=== PATIENT | female | born 1950 | race Caucasian/White ===

== ENCOUNTER 2019-09-08 16:09 | Inpatient (IN) | payer MEDICARE ==
[2019-09-08] MEDS ORDERED: FAMOTIDINE 20 MG/2 ML VIAL IV ONE (17:29)
[2019-09-08] MEDS ORDERED: FUROSEMIDE 20 MG/ 2ML VIAL ONE ×2 (17:29→17:57)
--- NOTE | 2019-09-08 17:47 | EDPHYS ---
Physician Documentation [facility] Name: Hedy Irene Age: 68 yrs Sex: Female : 1950 Arrival Date: 09/08/2019 Time: 16:12 Bed 6 Private MD: ED Physician Parminder West HPI: 09/08 17:14 This 68 yrs old Female presents to ER via Wheelchair with complaints of bri Breathing Difficulty. 17:14 The patient has shortness of breath at rest, with light activity. Onset: The bri symptoms/episode began/occurred 5 day(s) ago. Duration: The symptoms are continuous, and are steadily getting worse. The patient's shortness of breath is aggravated by exertion, light activity, supine position, walking. Severity of symptoms: At their worst the symptoms were moderate in the emergency department the symptoms are unchanged. The patient has not experienced similar symptoms in the past. Historical: - Allergies: 16:24 Codeine; aj1 - Home Meds: 16:24 fluoxetine 20 mg Oral cap 1 cap once daily [Active]; Lasix 40 mg Oral tab 1 tab 2 times aj1 per day [Active]; pravastatin 40 mg oral tab 1 tab once daily [Active]; oxybutynin chloride 5 mg Oral tr24 1 tab once daily [Active]; ropinirole 1 mg oral tab 1 tab twice daily [Active]; Vitamin D3 2,000 unit oral cap daily [Active]; CoQ-10 100 mg oral cap [Active]; Zyrtec 10 mg Oral chew 1 tab once daily [Active]; Prilosec 20 mg Oral cpDR 1 cap once daily [Active]; Lantus 100 unit/mL Sub-Q soln [Active]; Humalog 100 unit/mL Sub-Q crtg [Active]; Entresto 49-51 mg oral tab 1 tab 2 times per day [Active]; - PMHx: 16:24 CHF; Hyperlipidemia; Diabetes - NIDDM; aj1 - PSHx: 16:24 triple bypass; aj1 - Immunization history:: Adult Immunizations up to date. - Social history:: Smoking status: Patient/guardian denies using tobacco. - Ebola Screening: : Patient denies travel to an Ebola-affected area in the 21 days before illness onset. - Family history:: not pertinent. ROS: 17:14 Constitutional: Negative for fever, chills, and weight loss, Eyes: Negative for injury, bri pain, redness, and discharge, ENT: Negative for injury, pain, and discharge, Neck: Negative for injury, pain, and swelling, Cardiovascular: Negative for chest pain, palpitations, and edema, Abdomen/GI: Negative for abdominal pain, nausea, vomiting, diarrhea, and constipation, Back: Negative for injury and pain, : Negative for injury, bleeding, discharge, and swelling, Skin: Negative for injury, rash, and discoloration, Neuro: Negative for headache, weakness, numbness, tingling, and seizure, Psych: Negative for depression, anxiety, suicide ideation, homicidal ideation, and hallucinations, Allergy/Immunology: Negative for hives, rash, and allergies, Endocrine: Negative for neck swelling, polydipsia, polyuria, polyphagia, and marked weight changes, Hematologic/Lymphatic: Negative for swollen nodes, abnormal bleeding, and unusual bruising. 17:14 Respiratory: Positive for cough, dyspnea on exertion, pleurisy, shortness of breath, at rest. Exam: 17:14 Constitutional: This is a well developed, well nourished patient who is awake, alert, bri and in no acute distress. Head/Face: Normocephalic, atraumatic. Eyes: Pupils equal round and reactive to light, extra-ocular motions intact. Lids and lashes normal. Conjunctiva and sclera are non-icteric and not injected. Cornea within normal limits. Periorbital areas with no swelling, redness, or edema. ENT: Nares patent. No nasal discharge, no septal abnormalities noted. Tympanic membranes are normal and external auditory canals are clear. Oropharynx with no redness, swelling, or masses, exudates, or evidence of obstruction, uvula midline. Mucous membranes moist. Neck: Trachea midline, no thyromegaly or masses palpated, and no cervical lymphadenopathy. Supple, full range of motion without nuchal rigidity, or vertebral point tenderness. No Meningismus. Chest/axilla: Normal chest wall appearance and motion. Nontender with no deformity. No lesions are appreciated. Cardiovascular: Regular rate and rhythm with a normal S1 and S2. No gallops, murmurs, or rubs. Normal PMI, no JVD. No pulse deficits. Abdomen/GI: Soft, non-tender, with normal bowel sounds. No distension or tympany. No guarding or rebound. No evidence of tenderness throughout. Back: No spinal tenderness. No costovertebral tenderness. Full range of motion. Female : Normal external genitalia. Skin: Warm, dry with normal turgor. Normal color with no rashes, no lesions, and no evidence of cellulitis. Neuro: Awake and alert, GCS 15, oriented to person, place, time, and situation. Cranial nerves II-XII grossly intact. Motor strength 5/5 in all extremities. Sensory grossly intact. Cerebellar exam normal. Normal gait. Psych: Awake, alert, with orientation to person, place and time. Behavior, mood, and affect are within normal limits. 17:14 Respiratory: mild respiratory distress is noted, Respirations: labored breathing, Breath sounds: decreased breath sounds, that are mild. Vital Signs: 16:24 BP 135 / 57; Pulse 69; Resp 18; Temp 97.8; Pulse Ox 100% on R/A; Weight 73.48 kg (R); aj1 Height 5 ft. 4 in. (162.56 cm) (R); Pain 0/10; 17:42 BP 138 / 53; Pulse 84; Resp 18; Pulse Ox 97% 2 lpm ; sv 18:00 BP 143 / 59; Pulse 68; Resp 18; Pulse Ox 100% on 2 lpm NC; sv 19:00 BP 126 / 46; Pulse 88; Resp 18; Temp 97.8; Pulse Ox 100% on R/A; ea 20:59 BP 117 / 87; Pulse 89; Resp 18; Pulse Ox 100% on R/A; ea 22:26 BP 159 / 75; Pulse 73; Resp 18; Pulse Ox 99% on R/A; ea 16:24 Body Mass Index 27.81 (73.48 kg, 162.56 cm) aj1 MDM: 16:28 Patient medically screened. [facility] 17:14 Data reviewed: vital signs, nurses notes, lab test result(s), EKG, radiologic studies, [facility] plain films. 09/08 17:14 Order name: Basic Metabolic Panel; Complete Time: 18:59 [facility] 09/08 17:14 Order name: CBC with Diff [facility] 09/08 17:14 Order name: LFT's; Complete Time: 18:59 [facility] 09/08 17:14 Order name: Magnesium; Complete Time: 18:59 [facility] 09/08 17:14 Order name: NT PRO-BNP; Complete Time: 18:59 [facility] 09/08 17:14 Order name: PT-INR; Complete Time: 18:59 [facility] 09/08 17:14 Order name: Troponin (emerg Dept Use Only); Complete Time: 18:59 [facility] 09/08 17:14 Order name: Lipase; Complete Time: 18:59 [facility] 09/08 17:14 Order name: Urine Culture [facility] 09/08 17:14 Order name: Type And Screen [facility] 09/08 17:43 Order name: Urine Dipstick--Ancillary (enter results); Complete Time: 18:25 bd 09/08 18:19 Order name: Glucose; Complete Time: 18:59 sg 09/08 18:23 Order name: Glucose, Ancillary Testing; Complete Time: 18:25 EDTN 09/08 18:26 Order name: Glucose, Ancillary Testing EDTN 09/08 17:14 Order name: XRAY Chest (1 view); Complete Time: 18:27 [facility] 09/08 18:26 Order name: Phosphorus; Complete Time: 18:59 [facility] 09/08 19:00 Order name: Glucose, Ancillary Testing EDTN 09/08 19:42 Order name: Echo with Doppler EDTN 09/08 19:42 Order name: Troponin I EDTN 09/08 20:46 Order name: Manual Differential EDMS 09/09 00:38 Order name: ABO/RH no charge EDMS 09/09 05:00 Order name: Glucose, Ancillary Testing EDMS 09/09 05:25 Order name: Comprehensive Metabolic Panel EDMS 09/09 05:25 Order name: Phosphorus EDMS 09/09 05:25 Order name: NT PRO-BNP EDMS 09/09 05:25 Order name: Magnesium EDMS 09/09 05:53 Order name: Glucose, Ancillary Testing EDMS 09/09 06:15 Order name: CBC with Automated Diff EDMS 09/09 06:51 Order name: Manual Differential EDMS 09/09 07:08 Order name: Glucose, Ancillary Testing EDTN 09/08 17:14 Order name: EKG; Complete Time: 17:14 [facility] 09/08 17:14 Order name: Cardiac monitoring; Complete Time: 17:52 [facility] 09/08 17:14 Order name: EKG - Nurse/Tech; Complete Time: 18:15 [facility] 09/08 17:14 Order name: IV Saline Lock; Complete Time: 17:52 [facility] 09/08 17:14 Order name: Labs collected and sent; Complete Time: 17:52 [facility] 09/08 17:14 Order name: O2 Per Protocol; Complete Time: 17:52 [facility] 09/08 17:14 Order name: O2 Sat Monitoring; Complete Time: 17:52 [facility] 09/08 17:14 Order name: Urine Dipstick-Ancillary (obtain specimen); Complete Time: 18:14 [facility] 09/08 17:14 Order name: Oxygen; Complete Time: 17:52 [facility] 09/08 18:26 Order name: Diet Regular; Complete Time: 18:27 [facility] 09/08 18:28 Order name: IV Saline Lock - Large Bore; Complete Time: 18:32 [facility] Administered Medications: 17:40 Drug: Lasix 20 mg Route: IVP; Site: right forearm; sv 18:51 Follow up: Response: No adverse reaction sv 17:42 Drug: Pepcid 20 mg Route: IVP; Site: right forearm; sv 18:50 Follow up: Response: No adverse reaction sv 18:04 Drug: Lasix 20 mg Route: IVP; Site: right forearm; sv 18:50 Follow up: Response: No adverse reaction sv 18:14 Drug: D50W 25 ml Route: IVP; Site: right forearm; sv 18:50 Follow up: Response: No adverse reaction; Blood sugar is elevated sv 18:50 Drug: Potassium Effervescent Tablet 50 mEq Route: PO; sv 19:00 Follow up: Response: No adverse reaction ea 18:50 Drug: Potassium Chloride 20 mEq Route: IV; Rate: per protocol; Site: right forearm; sv 21:00 Follow up: Response: No adverse reaction; IV Status: Completed infusion; IV Intake: 50mlea 18:50 Drug: Magnesium Sulfate 2 grams Route: IVPB; Infused Over: 2 hrs; Site: right forearm; sv 21:00 Follow up: Response: No adverse reaction; IV Status: Completed infusion ea 19:39 Drug: NS 0.9% with KCl 20 mEq/L 1000 ml Route: IV; Rate: 50 ml/hr; Site: right ea antecubital; 22:23 Follow up: Response: No adverse reaction; IV Status: Infusion continued upon admission ea Disposition: 09/08/19 17:46 Hospitalization ordered by Elias Chamorro for Inpatient Admission. Preliminary diagnosis are Dyspnea, Cardiomegaly, Unspecified combined systolic (congestive) and diastolic (congestive) heart failure, Pleural effusion in conditions classified elsewhere, Edema, unspecified, Type 2 diabetes mellitus, Hypokalemia, Hypomagnesemia, Hypoglycemia, unspecified, Unspecified kidney failure - insufficency. - Bed requested for Telemetry/MedSurg (Inpatient). - Status is Inpatient Admission. hb - Condition is Fair. - Problem is new. - Symptoms have improved. UTI on Admission? No Signatures: Dispatcher [employer] EDMS Pallavi Grullon RN RN ajYoanna Jj RN Tena Rojas RN Radha Mcrae RN Parminder Bradshaw MD MD cha Baxter, Heather, RN RN hb Antunez, Elena, RN RN ea Corrections: (The following items were deleted from the chart) 18:28 17:46 Hospitalization Ordered by Elias Chamorro DO for Inpatient Admission. Preliminary bri diagnosis is Dyspnea; Cardiomegaly; Unspecified combined systolic (congestive) and diastolic (congestive) heart failure; Pleural effusion in conditions classified elsewhere; Edema, unspecified; Type 2 diabetes mellitus. Bed requested for Telemetry/MedSurg (Inpatient). Status is Inpatient Admission. Condition is Fair. Problem is new. Symptoms have improved. UTI on Admission? No. bri 18:29 18:28 09/08/2019 17:46 Hospitalization Ordered by Elias Chamorro DO for Inpatient bri Admission. Preliminary diagnosis is Dyspnea; Cardiomegaly; Unspecified combined systolic (congestive) and diastolic (congestive) heart failure; Pleural effusion in conditions classified elsewhere; Edema, unspecified; Type 2 diabetes mellitus; Hypokalemia; Hypomagnesemia; Hypoglycemia, unspecified. Bed requested for Telemetry/MedSurg (Inpatient). Status is Inpatient Admission. Condition is Fair. Problem is new. Symptoms have improved. UTI on Admission? No. bri 22:40 18:29 09/08/2019 17:46 Hospitalization Ordered by Elias Chamorro DO for Inpatient mw Admission. Preliminary diagnosis is Dyspnea; Cardiomegaly; Unspecified combined systolic (congestive) and diastolic (congestive) heart failure; Pleural effusion in conditions classified elsewhere; Edema, unspecified; Type 2 diabetes mellitus; Hypokalemia; Hypomagnesemia; Hypoglycemia, unspecified; Unspecified kidney failure - insufficency. Bed requested for Telemetry/MedSurg (Inpatient). Status is Inpatient Admission. Condition is Fair. Problem is new. Symptoms have improved. UTI on Admission? No. bri 09/09 10:52 12 22:40 09/08/2019 17:46 Hospitalization Ordered by Elias Pedro Pablo for Inpatient dw Admission. Preliminary diagnosis is Dyspnea; Cardiomegaly; Unspecified combined systolic (congestive) and diastolic (congestive) heart failure; Pleural effusion in conditions classified elsewhere; Edema, unspecified; Type 2 diabetes mellitus; Hypokalemia; Hypomagnesemia; Hypoglycemia, unspecified; Unspecified kidney failure - insufficency. Bed requested for [facility] ER HOLD. Status is Inpatient Admission. Condition is Fair. Problem is new. Symptoms have improved. UTI on Admission? No. mw 09/09 12:07 10:52 09/08/2019 17:46 Hospitalization Ordered by Elias Chamorro DO for Inpatient hb Admission. Preliminary diagnosis is Dyspnea; Cardiomegaly; Unspecified combined systolic (congestive) and diastolic (congestive) heart failure; Pleural effusion in conditions classified elsewhere; Edema, unspecified; Type 2 diabetes mellitus; Hypokalemia; Hypomagnesemia; Hypoglycemia, unspecified; Unspecified kidney failure - insufficency. Bed requested for Telemetry/MedSurg (Inpatient). Status is Inpatient Admission. Condition is Fair. Problem is new. Symptoms have improved. UTI on Admission? No. dw
--- NOTE | 2019-09-08 17:47 | ER ---
Nurse's Notes [facility] Name: Hedy Irene Age: 68 yrs Sex: Female : 1950 Arrival Date: 09/08/2019 Time: 16:12 Bed 6 Private MD: Diagnosis: Dyspnea;Cardiomegaly;Unspecified combined systolic (congestive) and diastolic (congestive) heart failure;Pleural effusion in conditions classified elsewhere;Edema, unspecified;Type 2 diabetes mellitus;Hypokalemia;Hypomagnesemia;Hypoglycemia, unspecified;Unspecified kidney failure-insufficency Presentation: 09/08 16:18 Presenting complaint: Patient states: She saw her doctor yesterday and had X-Rays done, aj1 this morning they called and told her that she had fluid on her lungs and to come to the emergency room. Patient reports shortness of breath on exertion, cough. Denies fever. Transition of care: patient was not received from another setting of care. Onset of symptoms was 2018. Risk Assessment: Do you want to hurt yourself or someone else? Patient reports no desire to harm self or others. Initial Sepsis Screen: Does the patient meet any 2 criteria? No. Patient's initial sepsis screen is negative. Does the patient have a suspected source of infection? Yes: Productive cough/pneumonia. Care prior to arrival: None. 16:18 Method Of Arrival: Wheelchair aj1 16:18 Acuity: CJ 3 aj1 Triage Assessment: 16:24 General: Appears in no apparent distress. comfortable, Behavior is calm, cooperative, aj1 appropriate for age. Pain: Denies pain. Neuro: Level of Consciousness is awake, alert, obeys commands. Cardiovascular: Patient's skin is warm and dry. Respiratory: Reports shortness of breath on exertion Airway is patent Respiratory effort is even, unlabored, Respiratory pattern is regular, symmetrical, the patient has mild shortness of breath. Historical: - Allergies: 16:24 Codeine; aj1 - Home Meds: 16:24 fluoxetine 20 mg Oral cap 1 cap once daily [Active]; Lasix 40 mg Oral tab 1 tab 2 times aj1 per day [Active]; pravastatin 40 mg oral tab 1 tab once daily [Active]; oxybutynin chloride 5 mg Oral tr24 1 tab once daily [Active]; ropinirole 1 mg oral tab 1 tab twice daily [Active]; Vitamin D3 2,000 unit oral cap daily [Active]; CoQ-10 100 mg oral cap [Active]; Zyrtec 10 mg Oral chew 1 tab once daily [Active]; Prilosec 20 mg Oral cpDR 1 cap once daily [Active]; Lantus 100 unit/mL Sub-Q soln [Active]; Humalog 100 unit/mL Sub-Q crtg [Active]; Entresto 49-51 mg oral tab 1 tab 2 times per day [Active]; - PMHx: 16:24 CHF; Hyperlipidemia; Diabetes - NIDDM; aj1 - PSHx: 16:24 triple bypass; aj1 - Immunization history:: Adult Immunizations up to date. - Social history:: Smoking status: Patient/guardian denies using tobacco. - Ebola Screening: : Patient denies travel to an Ebola-affected area in the 21 days before illness onset. - Family history:: not pertinent. Screenin:35 Abuse screen: Denies threats or abuse. Denies injuries from another. Nutritional sv screening: No deficits noted. Tuberculosis screening: No symptoms or risk factors identified. Fall Risk None identified. Assessment: 17:35 General: Appears in no apparent distress. uncomfortable, well developed, Behavior is sv calm, cooperative, appropriate for age. Pain: Denies pain. Neuro: Level of Consciousness is awake, alert, obeys commands, Oriented to person, place, time, situation, Moves all extremities. Full function Gait is steady, Speech is normal. Cardiovascular: Patient's skin is warm and dry. Rhythm is sinus rhythm. Respiratory: Airway is patent Respiratory effort is even, unlabored, Respiratory pattern is regular, symmetrical, Breath sounds are diminished bilaterally. Derm: Skin is pink, warm \T\ dry. Musculoskeletal: Range of motion: intact in all extremities, Swelling present in right foot and left foot. 18:15 Reassessment: Dr Chamorro at the bedside. sv 18:26 Reassessment: Pt given sandwich, chips and fruit. sv 18:50 Reassessment: Patient appears in no apparent distress at this time. Patient and/or sv family updated on plan of care and expected duration. Pain level reassessed. Patient is alert, oriented x 3, equal unlabored respirations, skin warm/dry/pink. 19:00 General: Appears in no apparent distress. Behavior is calm, cooperative, appropriate ea for age. Pain: Denies pain. Neuro: Level of Consciousness is awake, alert, obeys commands, Oriented to person, place, time, situation. Cardiovascular: Patient's skin is warm and dry. Respiratory: Airway is patent Respiratory effort is even, unlabored, Respiratory pattern is regular, symmetrical. Derm: Skin is pink, warm \T\ dry. Musculoskeletal: Circulation, motion, and sensation intact. 20:58 Reassessment: Patient and/or family updated on plan of care and expected duration. Pain ea level reassessed. Patient is alert, oriented x 3, equal unlabored respirations, skin warm/dry/pink. Awaiting on room assignment. Vital Signs: 16:24 BP 135 / 57; Pulse 69; Resp 18; Temp 97.8; Pulse Ox 100% on R/A; Weight 73.48 kg (R); aj1 Height 5 ft. 4 in. (162.56 cm) (R); Pain 0/10; 17:42 BP 138 / 53; Pulse 84; Resp 18; Pulse Ox 97% 2 lpm ; sv 18:00 BP 143 / 59; Pulse 68; Resp 18; Pulse Ox 100% on 2 lpm NC; sv 19:00 BP 126 / 46; Pulse 88; Resp 18; Temp 97.8; Pulse Ox 100% on R/A; ea 20:59 BP 117 / 87; Pulse 89; Resp 18; Pulse Ox 100% on R/A; ea 22:26 BP 159 / 75; Pulse 73; Resp 18; Pulse Ox 99% on R/A; ea 16:24 Body Mass Index 27.81 (73.48 kg, 162.56 cm) aj1 ED Course: 16:12 Patient arrived in ED. rg4 16:20 Triage completed. aj1 16:24 Arm band placed on Patient placed in an exam room. aj1 16:28 Parminder West MD is Attending Physician. [facility] 17:25 Yoanna Pedro, SOREN is Primary Nurse. sv 17:33 XRAY Chest (1 view) In Process Unspecified. EDMS 17:35 Patient has correct armband on for positive identification. Placed in gown. Bed in low sv position. Call light in reach. youth nutritional monitor on. Pulse ox on. NIBP on. Door closed. Warm blanket given. Head of bed elevated. 17:40 T\T\S collected, blood band applied to patient. Inserted saline lock: 20 gauge in right sv forearm, using aseptic technique. Blood collected. Flushed right forearm with 5 ml normal saline. 17:45 Elias Chamorro DO is Hospitalizing Provider. bri 18:50 Glucose, Ancillary Testing Sent. sv 19:16 Report given to Misa DOTY and Barbara RN. sv 19:51 Primary Nurse role handed off by Yoanna Pedro RN sv 20:01 Barbara Vickers RN is Primary Nurse. ea 22:24 No provider procedures requiring assistance completed. Patient admitted, IV remains in ea place. 09/09 07:34 Primary Nurse role handed off by Barbara Vickers RN bd Administered Medications: 09/08 17:40 Drug: Lasix 20 mg Route: IVP; Site: right forearm; sv 18:51 Follow up: Response: No adverse reaction sv 17:42 Drug: Pepcid 20 mg Route: IVP; Site: right forearm; sv 18:50 Follow up: Response: No adverse reaction sv 18:04 Drug: Lasix 20 mg Route: IVP; Site: right forearm; sv 18:50 Follow up: Response: No adverse reaction sv 18:14 Drug: D50W 25 ml Route: IVP; Site: right forearm; sv 18:50 Follow up: Response: No adverse reaction; Blood sugar is elevated sv 18:50 Drug: Potassium Effervescent Tablet 50 mEq Route: PO; sv 19:00 Follow up: Response: No adverse reaction ea 18:50 Drug: Potassium Chloride 20 mEq Route: IV; Rate: per protocol; Site: right forearm; sv 21:00 Follow up: Response: No adverse reaction; IV Status: Completed infusion; IV Intake: 50mlea 18:50 Drug: Magnesium Sulfate 2 grams Route: IVPB; Infused Over: 2 hrs; Site: right forearm; sv 21:00 Follow up: Response: No adverse reaction; IV Status: Completed infusion ea 19:39 Drug: NS 0.9% with KCl 20 mEq/L 1000 ml Route: IV; Rate: 50 ml/hr; Site: right ea antecubital; 22:23 Follow up: Response: No adverse reaction; IV Status: Infusion continued upon admission ea Intake: 21:00 IV: 50ml; Total: 50ml. ea Outcome: 17:46 Decision to Hospitalize by Provider. bri 19:00 Instructed on the need for admit, Demonstrated understanding of instructions. ea 22:25 Admitted to ER Hold. Please see [facility] for further documentation. ea 22:25 Condition: stable 09/09 12:07 Patient left the ED. blanche Signatures: Dispatcher [employer] EDMS Harper Irvin Angela, RN RN ajYoanna Jj RN Parminder Potts MD MD cha Baxter, Heather, RN RN hb Garcia, Rubi 4 Barbara Vickers RN RN ea
[2019-09-08 18:02] LABS: Absolute Lymphocytes (CBC) 1.9 K/uL (0.7-4.9); Basophils % 1.1 % (0-1.3); Hematocrit 25.9 % (36.0-45.0); Lymphocytes % 27.1 % (15.3-44.8); MPV 8.1 fL (7.6-11.3); RBC Red Blood Cell Count 3.78 M/uL (3.86-4.86)
[2019-09-08 18:03] LABS: Protime INR 1.19
[2019-09-08 18:09] LABS: Urine Blood NEGATIVE (NEG); Urine Glucose NEGATIVE (NEG); Urine Protein NEGATIVE (NEG)
[2019-09-08] MEDS ORDERED: D50W 25 GM/50 ML SYRINGE/VIAL IV ONE (18:15)
[2019-09-08 18:22] LABS: Albumin 3.1 g/dL (3.4-5.0); Bilirubin Direct 0.2 mg/dL (0-0.2); Bilirubin Total 0.5 mg/dL (0.2-1.0); Magnesium 1.5 mg/dL (1.8-2.4); Protein, Total 6.9 g/dL (6.4-8.2); Troponin (Emerg Dept Use Only) 0.04 ng/mL (0.0-0.045)
--- NOTE | 2019-09-08 18:22 | RAD REPORT ---
EXAM DESCRIPTION: RAD - Chest Single View - 09/08/2019 5:35 pm CLINICAL HISTORY: Cough, dyspnea COMPARISON: September 07 TECHNIQUE: AP portable chest image was obtained 1732 hours . FINDINGS: No peripheral mass or consolidation. Left pleural effusion and left base atelectasis are p resent not substantially different from comparison. Right pleural effusion appears slightly less than September 07 imaging. The interval changes small. Heart size normal. Vasculature within normal limits . No pneumothorax. No acute bony abnormality seen. No acute aortic findings suspected. IMPRESSION: No focal mass or consolidation. No significant failure or volume overload. Left pleural effusion is small and similar to comparison. Minimal right pleural effusion is probably slightly improved from prior day imaging.
[2019-09-08] MEDS ORDERED: POTASSIUM 25 MEQ EFFERV TAB ONE ×2 (18:30→18:40)
[2019-09-08 18:32] LABS: Potassium 2.9 mmol/L (3.5-5.1)
[2019-09-08] MEDS ORDERED: Magnesium Sulfate 2gm IVPB 2 G/50 ML BAG IV ONE (18:40)
[2019-09-08] MEDS ORDERED: KCL 20 MEQ/100 mL IVPB 20 MEQ/100 ML BAG IV ONE (18:41)
[2019-09-08] MEDS ORDERED: NS KCL 20MEQ 1,000 ML IV ONE (19:30)
[2019-09-08] MEDS ORDERED: MAGNESIUM HYDROXIDE 8% 30 ML PO PRN (19:36)
[2019-09-08] MEDS ORDERED: ONDANSETRON 4 MG/2 ML VIAL IV PRN (19:36)
[2019-09-08] MEDS ORDERED: ACETAMINOPHEN 500 MG TAB PO PRN (19:36)
[2019-09-08 20:46] LABS: Anisocytosis 1+; Blood Morphology Comment NOTED (NOT SEEN); Hypochromasia 1+; Ovalocytes 1+; Platelet Estimate ADEQ; Poikilocytosis 1+; Polychromasia 1+
[2019-09-08] MEDS: METOPROLOL TAR 50 MG TAB PO SCH (21:00)
[2019-09-08] MEDS: POTASSIUM 25 MEQ EFFERV TAB PO SCH (21:00)
[2019-09-08 23:40] VITALS: BMI 27.8
[2019-09-09] MEDS: FUROSEMIDE 40 MG/4 ML VIAL IV SCH ×3 (01:00→18:16)
[2019-09-09] MEDS ORDERED: FUROSEMIDE 20 MG/ 2ML VIAL ONE ×2 (01:06→09:50)
[2019-09-09] MEDS ORDERED: METOPROLOL TAR 50 MG TAB ONE ×2 (01:06→09:50)
[2019-09-09 05:24] LABS: Albumin 2.9 g/dL (3.4-5.0); Bilirubin Total 0.5 mg/dL (0.2-1.0); Magnesium 1.9 mg/dL (1.8-2.4); Potassium 3.7 mmol/L (3.5-5.1); Protein, Total 6.3 g/dL (6.4-8.2)
[2019-09-09 06:11] LABS: Hematocrit 23.8 % (36.0-45.0); MPV 8.1 fL (7.6-11.3); RBC Red Blood Cell Count 3.51 M/uL (3.86-4.86)
[2019-09-09 06:51] LABS: Anisocytosis 1+; Blood Morphology Comment NOTED (NOT SEEN); Hypochromasia 2+; Platelet Estimate ADEQ; Poikilocytosis 1+; Target Cells 1+
[2019-09-09] MEDS: METOPROLOL TAR 50 MG TAB PO SCH ×2 (09:00→21:38)
[2019-09-09] MEDS: POTASSIUM 25 MEQ EFFERV TAB PO SCH ×3 (09:00→21:39)
[2019-09-09] MEDS: ASPIRIN EC 81 MG TAB PO SCH (09:00)
[2019-09-09] MEDS: ENOXAPARIN 40 MG/0.4 ML SQ SCH (09:00)
[2019-09-09] MEDS: CLOPIDOGREL 75 MG TABLET PO SCH (09:00)
[2019-09-09] MEDS ORDERED: ASPIRIN 81 MG CHEWABLE TABLET ONE (09:50)
[2019-09-09] MEDS ORDERED: CLOPIDOGREL 75 MG TABLET ONE (09:50)
[2019-09-09] MEDS ORDERED: POTASSIUM 25 MEQ EFFERV TAB ONE (09:50)
[2019-09-09] MEDS ORDERED: ENOXAPARIN 80 MG/0.8 ML SQ ONE (09:51)
[2019-09-09] MEDS ORDERED: NA CHLORIDE 0.9% 250 ML ONE ×2 (09:51→14:28)
[2019-09-09] MEDS ORDERED: FUROSEMIDE 20 MG/ 2ML VIAL IV PRN (10:55)
--- NOTE | 2019-09-09 18:36 | EKG ---
Test Date: 2019-09-08 Test Time: 18:21:03 Fruit Receiver: CHANDLER MEASUREMENT RESULTS: Intervals: Rate: 67 OK: 184 QRSD: 82 QT: 366 QTc: 386 [place]: P: 62 OK: 184 QRS: 81 T: 232 INTERPRETIVE STATEMENTS: Normal sinus rhythm T wave abnormality, consider inferior ischemia Abnormal ECG No previous ECG available for comparison Electronically Signed On 09-09-19 18:36:10 TECHNICAL SUPPORT 1 SOFTWARE ENGINEER by Real Herman
[2019-09-10] MEDS: FUROSEMIDE 40 MG/4 ML VIAL IV SCH ×2 (00:05→10:03)
[2019-09-10] MEDS: POTASSIUM CL SA 10 MEQ TAB PO SCH ×2 (00:09→09:53)
[2019-09-10 06:51] LABS: Potassium 4.1 mmol/L (3.5-5.1)
[2019-09-10] MEDS: ENOXAPARIN 40 MG/0.4 ML SQ SCH (09:00)
[2019-09-10] MEDS: ASPIRIN EC 81 MG TAB PO SCH (09:00)
[2019-09-10] MEDS: METOPROLOL TAR 50 MG TAB PO SCH (09:53)
[2019-09-10] MEDS: CLOPIDOGREL 75 MG TABLET PO SCH (09:53)
[2019-09-10 13:08] VITALS: O2SAT 98
[2019-09-10 13:25] VITALS: BP 143/62; TEMP 98
--- NOTE | 2019-09-10 17:13 | CON ---
Date of Consultation: 09/10/2019 Reason For Consult: Acute on chronic renal insufficiency. History Of Present Illness: Ms. Irene is a 68-year-old female with past medical history significant for history of acute on chronic renal insufficiency, congestive heart failure, and coronary artery d dylan, presented to [facility] with complaining of worsening shortness of br eath, abdominal distention, weight gain of about 25 pounds, and was told by her primary care provider to go to the hospital for further evaluation. Because of ongoing congestive heart failure, which wa s failing to improve on p.o. Lasix. The patient has been admitted to the hospital and has received a few doses of IV Lasix with some improvement in her swelling and her shortness of breath. She is als o complaining of dry cough that has started after she started gaining all this weight. The patient r eports noncompliance with salt and reports that she loves salt in all her food and also reports eatin g a lot of processed meat. Past Medical History: Significant for history of chronic renal insufficiency, has been seen by Dr. Flor thomson in the past and follows up with him closely. History of type 2 diabetes mellitus, hypokalemia , hypomagnesemia, history of congestive heart failure, and coronary artery disease. Social History: Lives at home. No history of smoking or alcohol use reported. Family History: Noncontributory. Review of Systems: As per history of present illness. She denies any chest pain. She denies any abdominal pain. Does complain of decreased urination, which is improving at this time. No history of constipation. No hi story of abdominal pain. No headaches. No blurry vision. All other review of systems are negative. Physical Examination: Vital Signs: At this time are showing temperature of 97.3, pulse rate of 57, respiratory rate of 20, and blood pressure 120/55. General: She appears in no acute distress. No JVD was noted. Lungs: Clear to auscultation. Abdomen: Slightly distended, nontender. No rebound or guarding was noted. Extremities: Show 2+ bilateral pitting edema. Laboratory Data: Showing creatinine of 1.5, BUN of 40, and other electrolytes are stable. CBC showe d hemoglobin of 10.7, hematocrit of 34; was previously 7.4, upon repeated was improved to 10.7. Current Medications: Have been reviewed in detail. Impression: 1.Acute on chronic renal insufficiency, currently secondary to cardiorenal syndrome. The patient is diuresing well with IV Lasix. She can be discharged on p.o. Lasix 40 mg b.i.d. 2.Anemia. I am sure if the hemoglobin of 7.4 was a true value, it did improve to 10.7 at this time. She probably needs to be further worked up for iron deficiency as outpatient. We will further disc uss with Dr. Rich. 3.Hypertension, stable. 4.Coronary artery disease, stable. Being followed by Cardiology as outpatient as well. Plan: Patient is overall doing okay. However, we are concerned about the anemia and will need furth er workup for iron deficiency and may need some IV iron in the future. She is okay to be discharged at this point with 40 mg of Lasix b.i.d. and a close followup with Dr. Rich as outpatient. TRISTON/KORINL Voice ID: [id number] Report ID: [id number]
--- NOTE | 2019-10-12 07:31 | P.HP ---
Certification for Inpatient Patient admitted to: Inpatient With expected LOS: >2 Midnights Patient will require the following post-hospital care: None Practitioner: I am a practitioner with admitting privileges, knowledge of patient current condition, hospital course, and medical plan of care. Services: Services provided to patient in accordance with Admission requirements found in Title 42 Section 412.3 of the Code of Federal Regulations Patient History Date of Service: 09/08/19 Reason for admission: Shortness of breath History of Present Illness: Ms. Irene is a 68-year-old female with past medical history significant for history of chronic renal insufficiency, congestive heart failure, and coronary artery disease, who presented to [facility] with complaints of difficulty breathing and weight gain along with abdominal distension that is been going on for the last few weeks. She has a history of congestive heart failure and she feels like the swelling is related to build up of fluid. She feels like her Lasix is not working. In the emergency room, she was worked up & her chest x-ray reveals some pulmonary edema. She was given IV diuresing. She does have acute on chronic renal insufficiency. We will consult Nephrology. Patient will be admitted to the hospital for further workup. Allergies codeine Allergy (Verified 02/09/14 12:55) UNK Home Medications: Cetirizine HCl [Zyrtec*] 10 mg PO DAILY 02/09/14 Cholecalciferol (Vitamin D3) [Vitamin D 2,000 Unit Tab] 2,000 units PO BID 02/09 Fluoxetine HCl [Prozac*] 20 mg PO DAILY 02/09/14 Insulin Lispro [Humalog*] 0 units SQ UD PRN 02/09/14 Omeprazole Magnesium [Prilosec Otc] 20 mg PO DAILY 02/09/14 Oxybutynin Chloride [Ditropan*] 5 mg PO DAILY 02/09/14 Pravastatin [Pravachol*] 40 mg PO BEDTIME 02/09/14 Ubidecarenone [Coenzyme Q10*] 100 mg PO DAILY 02/09/14 Furosemide [Lasix*] 40 mg PO DAILY 09/08/19 Insulin Glargine Human [Lantus*] 22 units SQ DAILY 09/08/19 Ropinirole HCl [Requip*] 1 mg PO BID 09/08/19 Sacubitril/Valsartan [Entresto 49 mg-51 mg Tablet] 1 tab PO DAILY 09/08/19 Benzonatate [Tessalon Perle] 100 mg PO TID #15 cap 09/10/19 - Past Medical/Surgical History Has patient received pneumonia vaccine in the past: Yes Diabetic: Yes -: Type 1 DM -: CHF -: Headaches -: HLD -: Hysterectomy -: -: L shoulder surgery -: CABG-triple bypass x3, -: carpal tunnel bilaterally -: trigger thumb bilaterally - Family History Mother Medical History: Cancer Notes: Breast cancer - Social History Smoking Status: Never smoker Alcohol use: No CD- Drugs: No Caffeine use: Yes Place of Residence: Home Review of Systems 10-point ROS is otherwise unremarkable Physical Examination - Vital Signs Temperature: 98 F Blood Pressure: 143/62 Pulse: 56 Respirations: 20 Pulse Ox (%): 98 - Physical Exam General: Alert, In no apparent distress, Oriented x3 HEENT: Atraumatic, PERRLA, Mucous membr. moist/pink, EOMI, Sclerae nonicteric Neck: Supple, 2+ carotid pulse no bruit, No LAD, Without JVD or thyroid abnormality Respiratory: Clear to auscultation bilaterally, Normal air movement Cardiovascular: Regular rate/rhythm, Normal S1 S2, No murmurs Gastrointestinal: Normal bowel sounds, Soft and benign, Non-distended, No tenderness, No rebound, No guarding Musculoskeletal: No clubbing, No swelling, No tenderness Integumentary: No rashes Neurological: Normal gait, Normal speech, Normal strength at 5/5 x4 extr, Normal tone, Sensation intact, Cranial nerves 3-12 intact, Normal affect Lymphatics: No axilla or inguinal lymphadenopathy Assessment & Plan - Problems (Diagnosis) (1) Shortness of breath Status: Acute (2) Acute on chronic renal insufficiency Status: Acute (3) Abdominal pain Status: Acute (4) Nausea and vomiting Status: Acute - Plan 1. Continue with IV antibiotics 2. Awaiting sputum and blood culture 3. Repeat chest x-ray 4. Will proceed with CT scan of the chest if symptoms do not improve 5. Nephrology consultation to assist with monitoring renal function 6. Continue with nebs as needed 7. O2 per protocol 8. Continue with gentle hydration 9. Repeat labs including CBC and renal function in a.m. 10. GI and DVT prophylaxis Discharge Plan: Home Plan to discharge in: 48 Hours - Advance Directives Does patient have a Living Will: No Does patient have a Durable POA for Healthcare: No - Code Status/Comfort Care Code Status Assessed: Yes Code Status: Full Code Critical Care: No Time Spent Managing PTS Care (In Minutes): 45
--- NOTE | 2019-10-12 07:50 | P.PN ---
Subjective Date of Service: 09/09/19 Subjective: Improving Pt clinically continues to improve with no new complaints. Spoke with Nephrology and possible discharge tomorrow morning. Review of Systems 10-point ROS is otherwise unremarkable Physical Examination - Vital Signs Temperature: 98 F Blood Pressure: 143/62 Pulse: 56 Respirations: 20 Pulse Ox (%): 98 - Physical Exam General: Alert, In no apparent distress, Oriented x3 Respiratory: Clear to auscultation bilaterally, Normal air movement Cardiovascular: Regular rate/rhythm, Normal S1 S2 Gastrointestinal: Normal bowel sounds, Soft and benign, Non-distended, No tenderness Musculoskeletal: No tenderness - Studies Medications List Reviewed: Yes Assessment & Plan - Problems (Diagnosis) (1) Shortness of breath Status: Acute (2) Acute on chronic renal insufficiency Status: Acute (3) Abdominal pain Status: Acute (4) Nausea and vomiting Status: Acute - Plan Continue with current plan of care as mentioned below. 1. Continue with IV hydration 2. Appreciate Nephrology consultation 3. Continue with nebs as needed 4. O2 per protocol 5. Continue with gentle hydration 6. Repeat labs including CBC and renal function in a.m. 7. GI and DVT prophylaxis Discharge Plan: Home Plan to discharge in: Greater than 2 days - Advance Directives Does patient have a Living Will: No Does patient have a Durable POA for Healthcare: No - Code Status/Comfort Care Code Status: Full Code Critical Care: No Time Spent Managing PTS Care (In Minutes): 40
--- NOTE | 2019-10-12 07:57 | P.DS ---
Discharge Date: 09/10/19 Disposition: ROUTINE DISCHARGE Discharge Condition: GOOD Reason for Admission: Shortness of breath Consultations: Nephrology - Problems (1) Shortness of breath Status: Acute (2) Acute on chronic renal insufficiency Status: Acute (3) Abdominal pain Status: Acute (4) Nausea and vomiting Status: Acute Brief History of Present Illness: Ms. Irene is a 68-year-old female with past medical history significant for history of chronic renal insufficiency, congestive heart failure, and coronary artery disease, who presented to [facility] with complaints of difficulty breathing and weight gain along with abdominal distension that is been going on for the last few weeks. She has a history of congestive heart failure and she feels like the swelling is related to build up of fluid. She feels like her Lasix is not working. In the emergency room, she was worked up & her chest x-ray reveals some pulmonary edema. She was given IV diuresing. She does have acute on chronic renal insufficiency. We will consult Nephrology. Patient will be admitted to the hospital for further workup. Hospital Course: Patient has done well during hospital stay. Patient did require 2 units of packed red blood cells. Patient had episode of hypoglycemia which was corrected as well. Hold oral hypoglycemic agents. Adjust additional medications prior to discharge. Clinically patient is doing much better. At this time patient is stable for discharge with outpatient follow-up. Patient will need close follow-up with Cardiology and Nephrology. Vital Signs/Physical Exam: Temp Pulse Resp BP Pulse Ox 98 F 56 20 143/62 H 98 10/12/19 07:50 10/12/19 07:50 10/12/19 07:50 10/12/19 07:50 10/12/19 07:50 General: Alert, In no apparent distress, Oriented x3 Laboratory Data at Discharge: WBC 6.9 K/uL (4.3-10.9) 09/09/19 05:36 Hgb 10.7 g/dL (12.0-15.0) L D 09/09/19 19:40 Hct 34.0 % (36.0-45.0) L D 09/09/19 19:40 Plt Count 328 K/uL (152-406) 09/09/19 05:36 PT 13.9 SECONDS (9.5-12.5) H 09/08/19 17:40 INR 1.19 12/31/19 17:40 Sodium 142 mmol/L (136-145) 09/10/19 06:28 Potassium 4.1 mmol/L (3.5-5.1) 09/10/19 06:28 BUN 40 mg/dL (7-18) H 09/10/19 06:28 Creatinine 1.53 mg/dL (0.55-1.3) H 09/10/19 06:28 Glucose 93 mg/dL (74-106) 09/10/19 06:28 Phosphorus 4.0 mg/dL (2.5-4.9) 09/09/19 04:24 Magnesium 1.9 mg/dL (1.8-2.4) 09/09/19 04:24 Total Bilirubin 0.5 mg/dL (0.2-1.0) 09/09/19 04:24 AST 44 U/L (15-37) H 09/09/19 04:24 ALT 31 U/L (12-78) 09/09/19 04:24 Alkaline Phosphatase 106 U/L (45-117) 09/09/19 04:24 Troponin I 0.06 ng/mL (0.0-0.045) H 09/08/19 23:40 Lipase 14 U/L (73-393) L 09/08/19 17:40 Home Medications: Cetirizine HCl [Zyrtec*] 10 mg PO DAILY 02/09/14 Cholecalciferol (Vitamin D3) [Vitamin D 2,000 Unit Tab] 2,000 units PO BID 02/09 Fluoxetine HCl [Prozac*] 20 mg PO DAILY 02/09/14 Insulin Lispro [Humalog*] 0 units SQ UD PRN 02/09/14 Omeprazole Magnesium [Prilosec Otc] 20 mg PO DAILY 02/09/14 Oxybutynin Chloride [Ditropan*] 5 mg PO DAILY 02/09/14 Pravastatin [Pravachol*] 40 mg PO BEDTIME 02/09/14 Ubidecarenone [Coenzyme Q10*] 100 mg PO DAILY 02/09/14 Furosemide [Lasix*] 40 mg PO DAILY 09/08/19 Insulin Glargine Human [Lantus*] 22 units SQ DAILY 09/08/19 Ropinirole HCl [Requip*] 1 mg PO BID 09/08/19 Sacubitril/Valsartan [Entresto 49 mg-51 mg Tablet] 1 tab PO DAILY 09/08/19 Benzonatate [Tessalon Perle] 100 mg PO TID #15 cap 09/10/19 New Medications: Benzonatate [Tessalon Perle] 100 mg PO TID #15 cap Patient Discharge Instructions: OK TO DC IV AND DC HOME. FOLLOW-UP WITH PRIMARY CARE PROVIDER IN 1-2 WEEKS. FOLLOW-UP WITH CARDIOLOGY/ NEPHROLOGY IN 1- 2 WEEKS. RETURN TO THE ER IF SYMPTOMS WORSEN. CALL DR. ROMAN AT [phone] IF ANY QUESTIONS REGARDING HOSPITAL STAY. PLEASE CALL THE FLOOR AT [phone] IF ANY MEDICATION OR NURSING QUESTIONS. Diet: ADA Activity: Fall precautions Followup: Vlad Rich DO [ACTIVE - CAN ADMIT] - Jhon Sy MD [ACTIVE - CAN ADMIT] - Time spent managing pt's care (in minutes): 25
== END 2019-09-10 15:09 | disposition home or self-care (01) | DRG 292 ==
LOC: ER 16:09 → ERHOLD 19:36 → 2ND 09-09 11:32
PROVIDERS: ADMIT Hospitalist; ATTEND Hospitalist
DX: I13.0 Hypertensive heart and chronic kidney disease with heart failure and stage 1 through stage 4 chronic kidney disease, or unspecified chronic kidney disease (principal); J81.1 Chronic pulmonary edema; E10.22 Type 1 diabetes mellitus with diabetic chronic kidney disease; N18.9 Chronic kidney disease, unspecified; E10.649 Type 1 diabetes mellitus with hypoglycemia without coma; I50.9 Heart failure, unspecified; R10.9 Unspecified abdominal pain; R11.2 Nausea with vomiting, unspecified; D64.9 Anemia, unspecified; I25.10 Atherosclerotic heart disease of native coronary artery without angina pectoris
CPT/HCPCS: 36415; 36430; 71045; 71046; 80048; 80053; 80076; 81003; 82947; 83690; 83735; 83880; 84100; 84484; 85014; 85018; 85025; 85610; 86850; 86900; 86901; 87086; 87088; 93005; 96361; 96365; 96366; 96368; 96375; 99285; J1650; J1940; J3475; J7030; P9016

== ENCOUNTER 2020-08-15 18:30 | Observation (INO) | payer MEDICARE, OTHER, SELFPAY ==
[2020-08-15 19:49] LABS: Absolute Lymphocytes (CBC) 0.6 K/uL (0.7-4.9); Basophils % 0.8 % (0-1.3); Hematocrit 27.8 % (36.0-45.0); Lymphocytes % 8.8 % (15.3-44.8); RBC Red Blood Cell Count 3.35 M/uL (3.86-4.86)
[2020-08-15] MEDS ORDERED: NA CHLORIDE 0.9% 1,000 ML ONE (19:54)
[2020-08-15 20:32] LABS: Urine Blood 2+ (NEG); Urine Glucose NEGATIVE (NEG); Urine Protein NEGATIVE (NEG); Urine Specific Gravity 1.015 (1.005-1.030)
[2020-08-15] MEDS ORDERED: NA CHLORIDE 0.9% 0 ML ONE (20:37)
[2020-08-15 20:59] LABS: Urine Bacteria <20 /HPF (<20)
[2020-08-15 21:00] LABS: Urine Mucus 2+ /HPF (NONE SEEN)
--- NOTE | 2020-08-15 21:10 | ER ---
Nurse's Notes [facility] Name: Hedy Irene Age: 69 yrs Sex: Female : 1950 Arrival Date: 08/15/2020 Time: 18:59 Bed 6 Private MD: Diagnosis: Hypoglycemia, unspecified;Anemia, unspecified;Acute kidney failure Presentation: 08/15 18:45 Chief complaint: EMS states: FOUND HYPOGLYCEMIC BY EMS, BGL INITIALLY 21. Coronavirus bp screen: At this time, the client does not indicate any symptoms associated with coronavirus-19. Ebola Screen: No symptoms or risks identified at this time. Initial Sepsis Screen: Does the patient meet any 2 criteria? HR > 90 bpm. No. Patient's initial sepsis screen is negative. Does the patient have a suspected source of infection? No. Patient's initial sepsis screen is negative. Risk Assessment: Do you want to hurt yourself or someone else? Patient reports no desire to harm self or others. Onset of symptoms is unknown. Care prior to arrival: Medication(s) given: D50, 1 amp, IV initiated. 18 GA, in the right antecubital area, Glucose check: 201. 18:45 Method Of Arrival: EMS: [facility] bp 18:45 Acuity: CJ 2 bp Triage Assessment: 18:45 General: Appears distressed, uncomfortable, Behavior is cooperative, appropriate for bp age, anxious. 18:45 Pain: Denies pain. EENT: No deficits noted. Neuro: No deficits noted. Cardiovascular: bp No deficits noted. Respiratory: No deficits noted. GI: No signs and/or symptoms were reported involving the gastrointestinal system. : No signs and/or symptoms were reported regarding the genitourinary system. Derm: No deficits noted. Musculoskeletal: No deficits noted. Historical: - Allergies: 19:12 Codeine; bp - PMHx: 19:12 CHF; Hyperlipidemia; Diabetes - NIDDM; bp - PSHx: 19:12 CABG; bp - Immunization history:: Adult Immunizations up to date. - Social history:: Smoking status: Patient denies any tobacco usage or history of. Screenin:45 Abuse screen: Denies threats or abuse. Denies injuries from another. Nutritional bp screening: No deficits noted. Tuberculosis screening: No symptoms or risk factors identified. Fall Risk None identified. Assessment: 18:45 General: SEE TRIAGE NOTE. bp 19:28 Reassessment: Patient and/or family updated on plan of care and expected duration. Pain ll2 level reassessed. Patient is alert, oriented x 3, equal unlabored respirations, skin warm/dry/pink. pt resting comfortably, AAOX3, son at bedside. pt states she hasn't been feeling well past couple days and hasn't taken her insulin. 19:35 General: Appears in no apparent distress. comfortable, Behavior is calm, cooperative. mg2 Pain: Denies pain. Neuro: Level of Consciousness is awake, alert, obeys commands, Oriented to person, place, time, situation. Neuro: Reports weakness. Cardiovascular: Capillary refill < 3 seconds Patient's skin is warm and dry. Respiratory: Airway is patent Respiratory effort is even, unlabored, Respiratory pattern is regular, symmetrical. GI: No signs and/or symptoms were reported involving the gastrointestinal system. : No signs and/or symptoms were reported regarding the genitourinary system. EENT: No signs and/or symptoms were reported regarding the EENT system. Derm: Skin is intact, is healthy with good turgor, Skin is pale. Musculoskeletal: Circulation, motion, and sensation intact. Capillary refill < 3 seconds. 20:52 Reassessment: Patient appears in no apparent distress at this time. Patient and/or mg2 family updated on plan of care and expected duration. Pain level reassessed. 21:52 Reassessment: ANGELINE Butcher came and advised the patient for admission. mg2 Vital Signs: 18:45 BP 136 / 80; Pulse 92; Resp 16; Temp 97.3; Pulse Ox 95% ; bp 19:27 BP 119 / 44; Pulse 75; Resp 18; Temp 98; Pulse Ox 99% on R/A; ll2 20:52 BP 128 / 70; Pulse 78; Resp 18; Pulse Ox 98% on R/A; mg2 21:43 BP 117 / 94; Pulse 84; Resp 18; Pulse Ox 99% on R/A; mg2 ED Course: 18:45 Arm band placed on. bp 18:45 Patient has correct armband on for positive identification. Bed in low position. Call bp light in reach. Side rails up X2. Adult w/ patient. 18:45 Maintain EMS IV. Dressing intact. Good blood return noted. Site clean \T\ dry. Gauge \T\ bp site: 18 GAUGE R AC. 18:59 Patient arrived in ED. bp 19:03 [facility] Fish [facility]C [facility]. snw 19:03 Edward Gonzalez MD is Attending Physician. snw 19:04 Brennan Franco, SOREN is Primary Nurse. bp 19:11 Triage completed. bp 19:14 Attending Physician role handed off by Edward Gonzalez MD pkl 19:14 Moustapha Cerna MD is Attending Physician. pkl 19:20 Attending Physician role handed off by Moustapha Cerna MD bri 19:20 Parminder West MD is Attending Physician. bri 19:36 No provider procedures requiring assistance completed. mg2 20:22 Door closed. Warm blanket given. Pillow given. Assisted to bathroom. mg2 21:09 Elias Chamorro DO is Hospitalizing Provider. snw 21:43 Patient admitted, IV remains in place. mg2 21:43 COVID swab sent to lab. mg2 Administered Medications: 20:21 Drug: NS 0.9% 500 ml Route: IV; Rate: bolus; Site: right antecubital; mg2 20:53 Follow up: Response: No adverse reaction; IV Status: Completed infusion; IV Intake: mg2 500ml Point of Care Testing: Blood Glucose: 19:36 Blood Glucose: 350 mg/dL; mg2 Ranges: Intake: 20:53 IV: 500ml; Total: 500ml. mg2 Outcome: 21:10 Decision to Hospitalize by Provider. snw 22:30 Admitted to Med/surg accompanied by tech, via wheelchair, room 214, with chart, Report mg2 called to SOREN Welsh 22:30 Condition: good 22:30 Instructed on the need for admit, Demonstrated understanding of instructions. 22:35 Patient left the ED. mg2 Signatures: Parminder West MD MD cha Lam, Pin, MD MD pkl Jojo Fish FNP-C [employer] Brennan Franco, SOREN RN bp Kar Smith, SOREN DOTY mg2 Sveta Sellers, SOREN RN ll2 Corrections: (The following items were deleted from the chart) 20:52 20:51 BP 121 / 75; Pulse 135bpm; Resp 18bpm; Pulse Ox 100% RA; Temp 99.6F Catheter; mg2 mg2
--- NOTE | 2020-08-15 21:10 | EDPHYS ---
Physician Documentation [facility] Name: Hedy Irene Age: 69 yrs Sex: Female : 1950 Arrival Date: 08/15/2020 Time: 18:59 Bed 6 Private MD: ED Physician Parminder West HPI: 08/15 21:00 This 69 yrs old Female presents to ER via EMS with complaints of Low Blood snw Sugar. 21:00 The patient or guardian reports generalized fatigue, hypoglycemia. Onset: The snw symptoms/episode began/occurred gradually. Associated signs and symptoms: Pertinent positives: diaphoresis, near syncope. Current symptoms: In the emergency department the patient's symptoms have improved, moderately, markedly. The patient has been recently seen by a physician: with similar presenting complaints, and apparently given a diagnosis of atopic dermatitis excoriation/infection, started on two antibiotics, pt states she has not been eating much and has not changed her insulin dose. Pt states her readings have been in the 40s for the past several days. Historical: - Allergies: 19:12 Codeine; bp - PMHx: 19:12 CHF; Hyperlipidemia; Diabetes - NIDDM; bp - PSHx: 19:12 CABG; bp - Immunization history:: Adult Immunizations up to date. - Social history:: Smoking status: Patient denies any tobacco usage or history of. ROS: 21:00 Constitutional: Negative for fever, chills, and weight loss, Eyes: Negative for injury, snw pain, redness, and discharge, ENT: Negative for injury, pain, and discharge, Neck: Negative for injury, pain, and swelling, Cardiovascular: Negative for chest pain, palpitations, and edema, Respiratory: Negative for shortness of breath, cough, wheezing, and pleuritic chest pain, Abdomen/GI: Negative for abdominal pain, nausea, vomiting, diarrhea, and constipation, Back: Negative for injury and pain, : Negative for injury, bleeding, discharge, and swelling, MS/Extremity: Negative for injury and deformity, Skin: Negative for injury, rash, and discoloration. 21:00 Neuro: Positive for altered mental status, x the past two evenings 2nd to hypoglycemia. Exam: 20:58 Constitutional: This is a well developed, well nourished patient who is awake, alert, snw and in no acute distress. Head/Face: Normocephalic, atraumatic. Eyes: Pupils equal round and reactive to light, extra-ocular motions intact. Lids and lashes normal. Conjunctiva and sclera are non-icteric and not injected. Cornea within normal limits. Periorbital areas with no swelling, redness, or edema. ENT: Nares patent. No nasal discharge, no septal abnormalities noted. Tympanic membranes are normal and external auditory canals are clear. Oropharynx with no redness, swelling, or masses, exudates, or evidence of obstruction, uvula midline. Mucous membranes moist. Neck: Trachea midline, no thyromegaly or masses palpated, and no cervical lymphadenopathy. Supple, full range of motion without nuchal rigidity, or vertebral point tenderness. No Meningismus. Chest/axilla: Normal chest wall appearance and motion. Nontender with no deformity. No lesions are appreciated. Cardiovascular: Regular rate and rhythm with a normal S1 and S2. No gallops, murmurs, or rubs. Normal PMI, no JVD. No pulse deficits. Respiratory: Lungs have equal breath sounds bilaterally, clear to auscultation and percussion. No rales, rhonchi or wheezes noted. No increased work of breathing, no retractions or nasal flaring. Abdomen/GI: Soft, non-tender, with normal bowel sounds. No distension or tympany. No guarding or rebound. No evidence of tenderness throughout. Back: No spinal tenderness. No costovertebral tenderness. Full range of motion. 20:58 MS/ Extremity: Pulses equal, no cyanosis. Neurovascular intact. Full, normal range of motion. Neuro: Awake and alert, GCS 15, oriented to person, place, time, and situation. Cranial nerves II-XII grossly intact. Motor strength 5/5 in all extremities. Sensory grossly intact. Cerebellar exam normal. Normal gait. Psych: Awake, alert, with orientation to person, place and time. Behavior, mood, and affect are within normal limits. 20:58 Skin: Appearance: Color: pale, Temperature: warm, Moisture: dry, "atopic dermatitis" being treated with Amoxil and possibly Cleocin. . Vital Signs: 18:45 BP 136 / 80; Pulse 92; Resp 16; Temp 97.3; Pulse Ox 95% ; bp 19:27 BP 119 / 44; Pulse 75; Resp 18; Temp 98; Pulse Ox 99% on R/A; ll2 20:52 BP 128 / 70; Pulse 78; Resp 18; Pulse Ox 98% on R/A; mg2 21:43 BP 117 / 94; Pulse 84; Resp 18; Pulse Ox 99% on R/A; mg2 MDM: 19:20 Patient medically screened. bri 21:10 Data reviewed: vital signs, nurses notes. Data interpreted: Pulse oximetry: on room air snw is 98 %. Interpretation: normal. Counseling: I had a detailed discussion with the patient and/or guardian regarding: the historical points, exam findings, and any diagnostic results supporting the discharge/admit diagnosis, lab results, radiology results, the need for further work-up and treatment in the hospital. Physician consultation: Hadley HOOK was called at 21:00, was contacted at 21:00, regarding admission, to the telemetry unit. 08/15 18:59 Order name: Glucose, Ancillary Testing; Complete Time: 19:03 EDMS 08/15 19:34 Order name: CBC with Diff mg2 08/15 19:34 Order name: BMP mg2 08/15 19:45 Order name: Glucose, Ancillary Testing; Complete Time: 20:06 EDMS 08/15 19:52 Order name: CBC with Automated Diff; Complete Time: 20:06 EDMS 08/15 20:01 Order name: Basic Metabolic Panel; Complete Time: 20:06 EDMS 08/15 20:22 Order name: Urine Dipstick--Ancillary (enter results) ds4 08/15 20:22 Order name: Urine Microscopic Only ds4 08/15 20:33 Order name: Urine Dipstick-Ancillary; Complete Time: 20:36 EDMS 08/15 21:00 Order name: Urine Microscopic Only; Complete Time: 21:10 EDMS 08/15 21:12 Order name: COVID-19 snw 08/15 21:46 Order name: CORONAVIRUS EDMS Administered Medications: 20:21 Drug: NS 0.9% 500 ml Route: IV; Rate: bolus; Site: right antecubital; mg2 20:53 Follow up: Response: No adverse reaction; IV Status: Completed infusion; IV Intake: mg2 500ml Point of Care Testing: Blood Glucose: 19:36 Blood Glucose: 350 mg/dL; mg2 Ranges: Critical Glucose Levels:Adult <50 mg/dl or >400 mg/dl <40 mg/dl or >180 mg/dl Disposition: 08/16 04:54 Co-signature as Attending Physician, Parminder West MD I agree with the assessment and [facility] plan of care. Disposition: 08/15/20 21:10 Hospitalization ordered by Elias Chamorro for Inpatient Admission. Preliminary diagnosis are Hypoglycemia, unspecified, Anemia, unspecified, Acute kidney failure. - Bed requested for Telemetry/MedSurg (Inpatient). - Status is Inpatient Admission. mg2 - Condition is Stable. - Problem is new. - Symptoms have worsened. Signatures: Dispatcher [employer] EDMS Radha Perez RN RN Parminder Whitt MD MD cha Waters, Shelly, BARGE CAPTAIN-C BARGE CAPTAIN-Csnw Hadley Fontana BARGE CAPTAIN-C BARGE CAPTAIN-Cla1 Brennan Franco RN RN bp Kar Smith RN RN mg2 Corrections: (The following items were deleted from the chart) 08/15 22:16 21:10 Hospitalization Ordered by Elias Chamorro DO for Inpatient Admission. Preliminary dw diagnosis is Hypoglycemia, unspecified; Anemia, unspecified; Acute kidney failure. Bed requested for Telemetry/MedSurg (Inpatient). Status is Inpatient Admission. Condition is Stable. Problem is new. Symptoms have worsened. snw 22:35 22:16 08/15/2020 21:10 Hospitalization Ordered by Elias Chamorro DO for Inpatient mg2 Admission. Preliminary diagnosis is Hypoglycemia, unspecified; Anemia, unspecified; Acute kidney failure. Bed requested for Telemetry/MedSurg (Inpatient). Status is Inpatient Admission. Condition is Stable. Problem is new. Symptoms have worsened. dw
--- NOTE | 2020-08-15 22:32 | P.HP ---
Certification for Inpatient Patient admitted to: Inpatient With expected LOS: >2 Midnights Patient will require the following post-hospital care: None Practitioner: I am a practitioner with admitting privileges, knowledge of patient current condition, hospital course, and medical plan of care. Services: Services provided to patient in accordance with Admission requirements found in Title 42 Section 412.3 of the Code of Federal Regulations <Hadley Fontana - Last Filed: 08/15/20 22:26> Patient History Date of Service: 08/15/20 Primary Care Provider: Dr. Fitch, nephrology Dr. Rich Reason for admission: Hypoglycemia, acute kidney injury History of Present Illness: 69-year-old female with history of diabetes mellitus type 1, congestive heart failure, coronary artery disease S/P three-vessel CABG presented the emergency department for hypoglycemia. Patient was found by her son at home and was only responsive with groaning noises. Patient reports that she recently completed a course of antibiotics for a topic dermatitis lesions. Patient reports during the course of her antibiotics she lost her appetite and had not been eating or drinking well, blood sugars were reportedly in the 40s at home over the last couple of days. This morning patient checked her blood sugar and it was 40, she then administered 20 units of Lantus subcutaneously. Patient has not eaten. Patient was given amp of D50 by EMS and transported to the emergency department for further evaluation. During her evaluation in the emergency department patient was found to have acute kidney injury creatinine 2.51, GFR 19. Baseline GFR appears to be around 35. Mild normocytic anemia with hemoglobin 9.1, hematocrit 27.8. Patient denies any bloody stools. History of anemia. ED provider wishes to admit patient for further evaluation and management. When I saw the patient in the emergency department she is awake, alert, oriented x3. Patient able to hold a conversation well but did have a couple of slips in her memory, bringing up things regarding spoken about. Patient's son at bedside. - Past Medical/Surgical History Diabetic: Yes -: Diabetes mellitus type 1 -: Chronic diastolic congestive heart failure -: Headaches -: Hyperlipidemia -: Ectopic dermatitis -: CAD -: Hysterectomy -: -: L shoulder surgery -: CABG-triple bypass x3, -: carpal tunnel bilaterally -: trigger thumb bilaterally Psychosocial/ Personal History: Patient lives at home with her family - Family History Mother -: Cancer Notes: Breast cancer - Social History Smoking Status: Never smoker Alcohol use: No CD- Drugs: No Caffeine use: Yes Place of Residence: Home <Hadley Fontana - Last Filed: 08/15/20 22:26> Date of Service: 08/16/20 Home medications list reviewed: Yes <Elias Chamorro - Last Filed: 08/16/20 13:58> Allergies codeine Allergy (Verified 08/15/20 23:07) Nausea/Vomiting Home Medications: Cetirizine HCl [Zyrtec*] 10 mg PO DAILY 02/09/14 Fluoxetine HCl [Prozac*] 20 mg PO DAILY 02/09/14 Insulin Lispro [Humalog*] 0 units SQ BEDTIME PRN 02/09/14 Omeprazole Magnesium [Prilosec Otc] 20 mg PO DAILY 02/09/14 Oxybutynin Chloride [Ditropan*] 5 mg PO DAILY 02/09/14 Ubidecarenone [Coenzyme Q10*] 100 mg PO DAILY 02/09/14 Furosemide [Lasix*] 40 mg PO BID 09/08/19 Insulin Glargine Human [Lantus*] 24 units SQ DAILY 09/08/19 Sacubitril/Valsartan [Entresto 49 mg-51 mg Tablet] 1 tab PO BID 09/08/19 Gabapentin 1 tab PO DAILY 08/16/20 Pravastatin Sodium 1 tab PO DAILY 08/16/20 Ropinirole HCl 2 tab PO BEDTIME 08/16/20 Spironolactone 1 tab PO DAILY 08/16/20 hydrOXYzine HCL [Atarax*] 1 tab PO TID PRN 08/16/20 Review of Systems 10-point ROS is otherwise unremarkable General: Other (Anorexia) <Hadley Fontana - Last Filed: 08/15/20 22:26> Physical Examination - Physical Exam General: Alert, In no apparent distress HEENT: Atraumatic, PERRLA, Other (Mucous membranes dry) Neck: Supple, 2+ carotid pulse no bruit, No LAD, Without JVD or thyroid abnormality Respiratory: Clear to auscultation bilaterally, Normal air movement Cardiovascular: Regular rate/rhythm, Normal S1 S2 Gastrointestinal: Normal bowel sounds, No tenderness Musculoskeletal: No tenderness Integumentary: No rashes Neurological: Normal gait, Normal speech, Normal strength at 5/5 x4 extr, Normal tone, Normal affect - Studies Laboratory Data (last 24 hrs) 08/15/20 19:40: Sodium 138, Potassium 5.0, BUN 98 H, Creatinine 2.51 H, Glucose 272 H 08/15/20 19:40: WBC 7.0, Hgb 9.1 L, Hct 27.8 L, Plt Count 353 <Hadley Fontana - Last Filed: 08/15/20 22:26> - Studies Laboratory Data (last 24 hrs) 08/15/20 19:40: Sodium 138, Potassium 5.0, BUN 98 H, Creatinine 2.51 H, Glucose 272 H 08/15/20 19:40: WBC 7.0, Hgb 9.1 L, Hct 27.8 L, Plt Count 353 <Elias Chamorro - Last Filed: 08/16/20 13:58> Assessment and Plan - Plan Assessment Hypoglycemia secondary to anorexia and insulin use with history of diabetes mellitus type 1 Acute kidney injury superimposed on chronic kidney disease stage 3 Chronic congestive heart failure CAD S/P three-vessel CABG Atopic dermatitis Plan Hypoglycemia secondary to anorexia and insulin use with history of diabetes mellitus type 1: Patient was able to eat in the emergency department, states her appetite has improved. A.c. HS and p.r.n. Accu-Cheks, mild sliding scale insulin. Will hold off on long-acting insulin at this time. DVT prophylaxis heparin 5000 units subcutaneous twice daily. Acute kidney injury superimposed on chronic kidney disease stage 3: Likely prerenal related to dehydration, decreased p.o. intake the patient was recently and also on antibiotics, could be multifactorial. Continue gentle hydration overnight. Nephrology consult in place. Chronic congestive heart failure: Appears stable at this time, no echocardiogram on file. Patient appears dry, continue with gentle IV hydration. CAD S/P three-vessel CABG: Obtain and continue home medications. Atopic dermatitis: Patient recently completed course of antibiotics. Skin sores appear to be healing. Discharge Plan: Home Plan to discharge in: 48 Hours - Advance Directives Does patient have a Living Will: No Does patient have a Durable POA for Healthcare: No - Code Status/Comfort Care Code Status Assessed: Yes (Full code) Critical Care: No Time Spent Managing Pts Care (In Minutes): 55 <Hadley Fontana - Last Filed: 08/15/20 22:26> - Plan Case discussed in detail with nurse practitioner. Agree with plan of care. Continue monitor hypoglycemia. Patient back to her baseline. Blood sugar still fluctuating. Will discuss further with nephrology. Continue IV fluids. Will adjust her medications. Anticipate improvement over the next 24 hr. Review progress no for details. <Elias Chamorro - Last Filed: 08/16/20 13:58>
[2020-08-15 22:55] VITALS: BMI 22.6
[2020-08-15] MEDS ORDERED: ACETAMINOPHEN 500 MG TAB PO PRN (23:47)
[2020-08-15] MEDS ORDERED: ONDANSETRON 4 MG/2 ML VIAL IV PRN (23:47)
[2020-08-16] MEDS: NA CHLORIDE 0.9% 1,000 ML IV SCH ×2 (00:33→12:49)
[2020-08-16 05:34] LABS: Absolute Lymphocytes (CBC) 1.2 K/uL (0.7-4.9); Basophils % 0.7 % (0-1.3); Hematocrit 25.8 % (36.0-45.0); Lymphocytes % 15.2 % (15.3-44.8); RBC Red Blood Cell Count 3.11 M/uL (3.86-4.86)
[2020-08-16 05:35] LABS: Magnesium 2.2 mg/dL (1.8-2.4); Potassium 4.6 mmol/L (3.5-5.1); Thyroid Stimulating Hormone 2.77 uIU/mL (0.360-3.740)
[2020-08-16] MEDS ORDERED: ROPINIROLE HCL 1 MG TAB PO ONE (06:34)
[2020-08-16] MEDS: hydrOXYzine HCL 25 MG TAB PO PRN ×2 (06:57→16:48)
[2020-08-16] MEDS: INSULIN -REGULAR HUMAN 50 UNIT/0.5 ML ML SQ SCH ×4 (07:30→20:33)
--- NOTE | 2020-08-16 08:14 | P.CNS ---
Date of Consult: 08/16/20 Reason for Consult: CLARA/ CKD Requesting Physician: Elias Chamorro Primary Care Provider: Dr. Fitch, nephrology Dr. Rich Chief Complaint: Hypoglycemia, acute kidney injury History of Present Illness: 69-year-old female with history of diabetes mellitus type 1, congestive heart failure, coronary artery disease S/P three-vessel CABG presented the emergency department for hypoglycemia. Patient was found by her son at home and was only responsive with groaning noises. Patient reports that she recently completed a course of antibiotics for a topic dermatitis lesions. Patient reports during the course of her antibiotics she lost her appetite and had not been eating or drinking well, blood sugars were reportedly in the 40s at home over the last couple of days. This morning patient checked her blood sugar and it was 40, she then administered 20 units of Lantus subcutaneously. Patient has not eaten. Patient was given amp of D50 by EMS and transported to the emergency department for further evaluation. During her evaluation in the emergency department patient was found to have acute kidney injury creatinine 2.51, GFR 19. Baseline GFR appears to be around 35. Mild normocytic anemia with hemoglobin 9.1, hematocrit 27.8. Patient denies any bloody stools. History of anemia. ED provider wishes to admit patient for further evaluation and management. 21:00 This 69 yrs old Female presents to ER via EMS with complaints of Low Blood snw Sugar. 21:00 The patient or guardian reports generalized fatigue, hypoglycemia. Onset: The snw symptoms/episode began/occurred gradually. Associated signs and symptoms: Pertinent positives: diaphoresis, near syncope. Current symptoms: In the emergency department the patient's symptoms have improved, moderately, markedly. The patient has been recently seen by a physician: with similar presenting complaints, and apparently given a diagnosis of atopic dermatitis excoriation/infection, started on two antibiotics, pt states she has not been eating much and has not changed her insulin dose. Pt states her readings have been in the 40s for the past several days. Allergies codeine Allergy (Verified 08/15/20 23:07) Nausea/Vomiting Home medications list reviewed: Yes Home Medications: Cetirizine HCl [Zyrtec*] 10 mg PO DAILY 02/09/14 Fluoxetine HCl [Prozac*] 20 mg PO DAILY 02/09/14 Insulin Lispro [Humalog*] 0 units SQ BEDTIME PRN 02/09/14 Omeprazole Magnesium [Prilosec Otc] 20 mg PO DAILY 02/09/14 Oxybutynin Chloride [Ditropan*] 5 mg PO DAILY 02/09/14 Ubidecarenone [Coenzyme Q10*] 100 mg PO DAILY 02/09/14 Furosemide [Lasix*] 40 mg PO BID 09/08/19 Insulin Glargine Human [Lantus*] 24 units SQ DAILY 09/08/19 Sacubitril/Valsartan [Entresto 49 mg-51 mg Tablet] 1 tab PO BID 09/08/19 Gabapentin 1 tab PO DAILY 08/16/20 Pravastatin Sodium 1 tab PO DAILY 08/16/20 Ropinirole HCl 2 tab PO BEDTIME 08/16/20 Spironolactone 1 tab PO DAILY 08/16/20 hydrOXYzine HCL [Atarax*] 1 tab PO TID PRN 08/16/20 - Past Medical/Surgical History Diabetic: Yes -: Diabetes mellitus type 1 -: Chronic diastolic congestive heart failure -: Headaches -: Hyperlipidemia -: Ectopic dermatitis -: CAD -: triple bypass 2006 -: Hysterectomy -: -: L shoulder surgery -: CABG-triple bypass x3, -: carpal tunnel bilaterally -: trigger thumb bilaterally Psychosocial/ Personal History: Patient lives at home with her family - Family History Mother Medical History: Cancer Notes: Breast cancer - Social History Smoking Status: Never smoker Alcohol use: No CD- Drugs: No Caffeine use: Yes Place of Residence: Home Review of Systems 10-point ROS is otherwise unremarkable General: Weakness, Malaise Neurological: Weakness Physical Examination Temp Pulse Resp BP Pulse Ox 97.5 F 76 17 126/58 L 100 08/16/20 04:00 08/16/20 04:00 08/16/20 04:00 08/16/20 04:00 08/16/20 04:00 General: Oriented x3, Cooperative HEENT: Atraumatic Neck: Supple Respiratory: Clear to auscultation bilaterally Cardiovascular: No edema, Regular rate/rhythm Gastrointestinal: Soft and benign, Non-distended Musculoskeletal: No clubbing, No contractures Integumentary: No rashes, No cyanosis Neurological: Normal speech Laboratory Data (last 24 hrs) 08/15/20 19:40: Sodium 138, Potassium 5.0, BUN 98 H, Creatinine 2.51 H, Glucose 272 H 08/15/20 19:40: WBC 7.0, Hgb 9.1 L, Hct 27.8 L, Plt Count 353 Conclusions/Impression: A/ CLARA likely due to hypovolemia Hyperkalemia Hypocalcemia CKD III HTN with CKD/ CHF Diastolic CHF, chronic DM I with Hyperglycemia complicated by hypoglycemia DM I with CKD Anemia in chronic illness P/ Continue current POC and medications Change IVF 1/2NS. Gentle IVF. Give Epo. Start Vitamin D. No NSAIDs. AM labs. Daily weight. Thank you kindly for the consultation. Case reviewed with Dr. Chamorro.
[2020-08-16] MEDS: HEPARIN 5000 UNIT/ML 1 ML VIAL SQ SCH ×2 (10:19→20:31)
--- NOTE | 2020-08-16 13:53 | P.PN ---
Subjective Date of Service: 08/16/20 Primary Care Provider: Dr. Fitch, nephrology Dr. Rich Chief Complaint: Hypoglycemia, acute kidney injury Physical Examination - Vital Signs Temperature: 97.6 F Blood Pressure: 117/58 Pulse: 76 Respirations: 16 Pulse Ox (%): 97 - Studies Laboratory Data (last 24 hrs) 08/15/20 19:40: Sodium 138, Potassium 5.0, BUN 98 H, Creatinine 2.51 H, Glucose 272 H 08/15/20 19:40: WBC 7.0, Hgb 9.1 L, Hct 27.8 L, Plt Count 353 Assessment & Plan Discharge Plan: Home Plan to discharge in: 24 Hours Physician Review Additional Text: Assessment Metabolic encephalopathy related to Hypoglycemia secondary to anorexia and insulin use with history of diabetes mellitus type 1 Acute kidney injury superimposed on chronic kidney disease stage 3 Chronic congestive heart failure CAD S/P three-vessel CABG Atopic dermatitis Anemia of chronic disease Plan Metabolic encephalopathy related to Hypoglycemia secondary to anorexia and insulin use with history of diabetes mellitus type 1: Patient had been given D50 by EMS. Patient also had given herself Lantus prior to admission. Blood montoya gar still on stable. Will need to monitor for hypoglycemia. If this persists patient may require IV D 5. Continue to hold basal insulin. Will check A1c. Continue Accu-Cheks and sliding scale. May need to make further adjustments in medications. Will discuss further with nephrology. Anticipate improvement over the next 24 hr. Acute kidney injury superimposed on chronic kidney disease stage 3: Likely prerenal related to dehydration. Encourage oral intake. Discontinue antibiotic therapy. Will discuss further with nephrology. Dysfunction may be related to medications. Chronic congestive heart failure: Appears stable at this time, no echocardiogram on file. Will monitor closely. CAD S/P three-vessel CABG: Obtain and continue home medications. Atopic dermatitis: Patient recently completed course of antibiotics. Skin sores appear to be healing. Patient reports this all started after taking multiple medications. She has been given multiple medications over the course of the year. Will investigate this further. Anemia of chronic disease: Will monitor this closely. Overall stable. Time Spent Managing Pts Care (In Minutes): 55
[2020-08-16] MEDS: PANTOPRAZOLE 40MG TABLET PO SCH (16:48)
[2020-08-16] MEDS: SACUBITRIL/VALSARTAN 49/51 MG TAB PO SCH (20:33)
[2020-08-16] MEDS ORDERED: ROPINIROLE HCL 1 MG TAB PO SCH (21:00)
[2020-08-16] MEDS ORDERED: NACHLORIDE 0.45% 1,000 ML IV SCH (23:45)
[2020-08-17] MEDS: PANTOPRAZOLE 40MG TABLET PO SCH (05:19)
[2020-08-17 05:49] LABS: Magnesium 2.3 mg/dL (1.8-2.4); Potassium 5.1 mmol/L (3.5-5.1)
[2020-08-17 05:53] LABS: Absolute Lymphocytes (CBC) 1.5 K/uL (0.7-4.9); Basophils % 0.8 % (0-1.3); Lymphocytes % 17.4 % (15.3-44.8); MPV 8.2 fL (7.6-11.3)
[2020-08-17] MEDS: INSULIN -REGULAR HUMAN 50 UNIT/0.5 ML ML SQ SCH ×2 (07:30→11:30)
[2020-08-17] MEDS: HEPARIN 5000 UNIT/ML 1 ML VIAL SQ SCH (08:57)
[2020-08-17] MEDS: SACUBITRIL/VALSARTAN 49/51 MG TAB PO SCH (08:58)
[2020-08-17] MEDS ORDERED: COENZYME Q10- 200 MG CAP PO SCH (09:00)
[2020-08-17] MEDS ORDERED: ATORVASTATIN 10 MG TAB PO SCH (09:00)
[2020-08-17] MEDS ORDERED: EPOETIN ALFA-EPBX 10,000 UNIT/ML VIAL SQ SCH (09:00)
[2020-08-17] MEDS ORDERED: CETIRIZINE HCL 5 MG TABLET PO SCH (09:00)
[2020-08-17] MEDS ORDERED: CALCITROL 0.25 MCG CAP PO SCH (09:00)
[2020-08-17] MEDS ORDERED: FLUOXETINE 20 MG CAP PO SCH (09:00)
[2020-08-17] MEDS ORDERED: VITAMIN D 5,000 UNIT CAP PO SCH (09:00)
--- NOTE | 2020-08-17 11:56 | P.DS ---
Admission Date: 08/15/20 Discharge Date: 08/17/20 Primary Care Provider: Dr. Fitch, nephrology Dr. Rich Disposition: ROUTINE DISCHARGE Discharge Condition: GOOD Reason for Admission: Hypoglycemia, acute kidney injury Consultations: Nephrology-Dr. Rich Procedures: Medical problem list: Metabolic encephalopathy related to Hypoglycemia secondary to anorexia and insulin use with history of diabetes mellitus type 1 Acute kidney injury superimposed on chronic kidney disease stage 3 Chronic systolic congestive heart failure CAD S/P three-vessel CABG Atopic dermatitis Anemia of chronic disease RLS Hyperlipidemia GERD Brief History of Present Illness: 69-year-old female with history of diabetes mellitus type 1, congestive heart failure, coronary artery disease S/P three-vessel CABG presented the emergency department for hypoglycemia. Patient was found by her son at home and was only responsive with groaning noises. Patient reports that she recently completed a course of antibiotics for a topic dermatitis lesions. Patient reports during the course of her antibiotics she lost her appetite and had not been eating or drinking well, blood sugars were reportedly in the 40s at home over the last couple of days. She apparently checked her blood sugar and it was 40. She then administered 20 units of Lantus which she normally takes. Patient was given amp of D50 by EMS and transported to the emergency department for further evaluation. During her evaluation in the emergency department patient was found to have acute kidney injury creatinine 2.51, GFR 19. Baseline GFR appears to be around 35. Mild normocytic anemia with hemoglobin 9.1, hematocrit 27.8. Patient denies any bloody stools. History of anemia. Patient was admitted for further evaluation. Hospital Course: Patient presented with metabolic encephalopathy related to hypoglycemia. Patient was admitted for further evaluation. This is likely related to anorexia and insulin use. Patient with history of type 1 diabetes. Patient takes Lantus 24 units daily. Patient was given D50 by EMS. Her blood sugars were monitor closely. During the course of her stay her her blood sugar stabilized. A1c 8.1. During her stay Lantus was held. Blood sugars now between 130 and 160. Patient educated on hypoglycemia. At discharge she will continue with a 2000 ADA diet. Patient will need to monitor for hypoglycemia. Recommend to monitor blood sugars at least twice daily. Recommend to maintain blood sugars less than 140 fasting and less than 200 after meals. Will recommend to hold Lantus at discharge. If her blood sugars began to increase then she can start back at Lantus 5 units subcu daily. This can be further adjusted by her PCP. For the time being will provide Humalog sliding scale as directed. If patient continues with anorexia, will recommend oral supplementation. This can be further addressed by her PCP. Recommend follow up with PCP within 1 week to follow up her care and further monitor her medications and diabetes. Patient also had acute renal injury on chronic kidney disease stage 3. This is likely from dehydration. Patient was given IV fluids. Patient has done well. Nephrology was consulted. At discharge patient will continue with vitamin-D supplementation. Recommend no further use of nonsteroidal anti-inflammatories. Medications have been adjusted. Will recommend to discontinue Aldactone. Her Lasix will be decreased to 40 mg daily. Recommend follow up with nephrology and repeat lab-BMP in 1 week to further address and monitor her condition. Patient with chronic systolic heart failure. This appears stable. At discharge patient will continue with Entesto 1 pill twice daily. As mentioned above at discharge Aldactone will be discontinued. Patient will continue with Lasix 40 mg at 40 mg daily. Recommend to monitor her weight daily. If her anorexia persists may need to hold Lasix. This can be further adjusted and monitored by her PCP. Recommend 1500 cc per day fluid restriction and low-salt diet. Recommend to monitor her weight daily. Patient with CAD and prior CABG. Recommend follow up with cardiology as directed. Patient with a topic dermatitis. Patient recently on antibiotics. Recommend to discontinue antibiotics at this time. Recommend dermatology evaluation as an outpatient. Recommend to keep a diary as this may be medication related. Will recommend to discontinue gabapentin at discharge. Aldactone also did discontinued. Will need to monitor her changes closely. This can be further monitored and addressed by PCP. Patient continue with her other medications including Zyrtec 10 mg daily and Atarax 25 mg 3 times a day as needed for irritation. Patient with restless leg syndrome. At discharge she will continue with Requip 2 mg at bedtime. Patient with hyperlipidemia. At discharge she will continue with pravastatin 20 mg daily. Patient with depression. At discharge she will continue with Prozac 20 mg daily. Patient with anemia chronic disease likely from her chronic renal disease. This appears stable this time. Patient did receive Epogen during her stay. This can be further monitored and addressed by nephrology. Vital Signs/Physical Exam: Temp Pulse Resp BP Pulse Ox 97.8 F 77 18 131/68 98 08/17/20 08:00 08/17/20 08:00 08/17/20 08:00 08/17/20 08:00 08/17/20 08:00 General: Alert, In no apparent distress, Oriented x3, Cooperative HEENT: Atraumatic Neck: Supple Respiratory: Clear to auscultation bilaterally, Normal air movement Cardiovascular: Normal pulses, Regular rate/rhythm Gastrointestinal: Normal bowel sounds, Soft and benign, Non-distended, No tenderness, No masses, No rebound, No guarding Neurological: Normal speech, Normal strength at 5/5 x4 extr, Normal tone, Normal affect Laboratory Data at Discharge: WBC 8.7 K/uL (4.3-10.9) 08/17/20 05:15 Hgb 7.9 g/dL (12.0-15.0) L* 08/17/20 05:15 Hct 24.0 % (36.0-45.0) L 08/17/20 05:15 Plt Count 266 K/uL (152-406) D 08/17/20 05:15 Sodium 143 mmol/L (136-145) 08/17/20 05:15 Potassium 5.1 mmol/L (3.5-5.1) 08/17/20 05:15 BUN 64 mg/dL (7-18) H D 08/17/20 05:15 Creatinine 1.71 mg/dL (0.55-1.3) H 08/17/20 05:15 Glucose 175 mg/dL (74-106) H 08/17/20 05:15 Magnesium 2.3 mg/dL (1.8-2.4) 08/17/20 05:15 Home Medications: Cetirizine HCl [Zyrtec*] 10 mg PO DAILY 02/09/14 Fluoxetine HCl [Prozac*] 20 mg PO DAILY 02/09/14 Omeprazole Magnesium [Prilosec Otc] 20 mg PO DAILY 02/09/14 Ubidecarenone [Coenzyme Q10*] 100 mg PO DAILY 02/09/14 Sacubitril/Valsartan [Entresto 49 mg-51 mg Tablet] 1 tab PO BID 09/08/19 Pravastatin Sodium 1 tab PO DAILY 08/16/20 Ropinirole HCl 2 tab PO BEDTIME 08/16/20 hydrOXYzine HCL [Atarax*] 1 tab PO TID PRN 08/16/20 Cholecalciferol (Vitamin D3) [Vitamin D 5,000 IU Cap*] 5,000 unit PO DAILY #30 cap 08/17/20 Furosemide [Lasix*] 40 mg PO DAILY #30 tab 08/17/20 Insulin Lispro [Humalog*] See Protocol SQ BEDTIME #1 vial 08/17/20 New Medications: Insulin Lispro [Humalog*] See Protocol SQ BEDTIME #1 vial Furosemide [Lasix*] 40 mg PO DAILY #30 tab Cholecalciferol (Vitamin D3) [Vitamin D 5,000 IU Cap*] 5,000 unit PO DAILY #30 cap Patient Discharge Instructions: 1. Recommend follow up with PCP in 1 week to follow up this hospitalization. 2. Patient presented with metabolic encephalopathy related to hypoglycemia. Patient was admitted for further evaluation. This is likely related to anorexia and insulin use. Patient with history of type 1 diabetes. Patient takes Lantus 24 units daily. Patient was given D50 by EMS. Her blood sugars were monitor closely. During the course of her stay her her blood sugar stabilized. A1c 8.1. During her stay Lantus was held. Blood sugars now between 130 and 160. Patient educated on hypoglycemia. At discharge she will continue with a 2000 ADA diet. Patient will need to monitor for hypoglycemia. Recommend to monitor blood sugars at least twice daily. Recommend to maintain blood sugars less than 140 fasting and less than 200 after meals. Will recommend to hold Lantus at discharge. If her blood sugars began to increase then she can start back at Lantus 5 units subcu daily. This can be further adjusted by her PCP. For the time being will provide Humalog sliding scale as directed. If patient continues with anorexia, will recommend oral supplementation. This can be further addressed by her PCP. Recommend follow up with PCP within 1 week to follow up her care and further monitor her medications and diabetes. 3. Patient also had acute renal injury on chronic kidney disease stage 3. This is likely from dehydration. Patient was given IV fluids. Patient has done well. Nephrology was consulted. At discharge patient will continue with vitamin-D supplementation. Recommend no further use of nonsteroidal anti-inflammatories. Medications have been adjusted. Will recommend to discontinue Aldactone. Her Lasix will be decreased to 40 mg daily. Recommend follow up with nephrology and repeat lab-BMP in 1 week to further address and monitor her condition. 4. Patient with chronic systolic heart failure. This appears stable. At discharge patient will continue with Entesto 1 pill twice daily. As mentioned above at discharge Aldactone will be discontinued. Patient will continue with Lasix 40 mg at 40 mg daily. Recommend to monitor her weight daily. If her anorexia persists may need to hold Lasix. This can be further adjusted and monitored by her PCP. Recommend 1500 cc per day fluid restriction and low-salt diet. Recommend to monitor her weight daily. 5. Patient with CAD and prior CABG. Recommend follow up with cardiology as directed. 6. Patient with a topic dermatitis. Patient recently on antibiotics. Recommend to discontinue antibiotics at this time. Recommend dermatology evaluation as an outpatient. Recommend to keep a diary as this may be medication related. Will recommend to discontinue gabapentin at discharge. Aldactone also did discontinued. Will need to monitor her changes closely. This can be further monitored and addressed by PCP. Patient continue with her other medications including Zyrtec 10 mg daily and Atarax 25 mg 3 times a day as needed for irritation. 7. Patient with restless leg syndrome. At discharge she will continue with Requip 2 mg at bedtime. 8. Patient with hyperlipidemia. At discharge she will continue with pravastatin 20 mg daily. 9. Patient with depression. At discharge she will continue with Prozac 20 mg daily. 10. Patient with anemia chronic disease likely from her chronic renal disease. This appears stable this time. Patient did receive Epogen during her stay. This can be further monitored and addressed by nephrology. Diet: Renal Activity: Fall precautions Followup: Savanah Fitch DO [Primary Care Provider] - Time spent managing pt's care (in minutes): 55
[2020-08-17 12:27] VITALS: O2SAT 100
--- NOTE | 2020-08-17 13:07 | PN ---
Date of Progress Note: 08/17/2020 Subjective: The patient was seen and examined at bedside. She is doing much better. She would like to go home. Objective: Vital signs: Reviewed and are stable. General: She appears in no acute distress. Lungs: Clear to auscultation. Abdomen: Soft and nontender. Extremities: Showed no evidence of edema. Laboratory Data: Showing creatinine stable at 1.71. Sodium of 143, potassium of 5.1, chloride of 11 4, BUN of 25. A1c was 8.1. CBC showing hemoglobin of 7.9, hematocrit of 24, and platelet count of 2 66. Current Medications: Have been reviewed in detail. Impression: 1.Acute renal failure secondary to acute tubular necrosis, currently with improving renal function. 2.Hypoglycemia secondary to uncontrolled diabetes and taking excessive doses of insulin. The patien t has been counseled and Dr. Chamorro is planning to send her out on NovoLog sliding scale and Lantus c an be restarted as outpatient. 3.Chronic congestive heart failure. Her spironolactone will be on hold upon discharge. Entresto ca n be resumed and Lasix to be given once a day. 4.Anemia secondary to chronic disease. The patient had mild drop in hemoglobin. She can be followe d up as outpatient to monitor her hemoglobin levels. Plan: The patient is overall doing okay. She is okay to be discharged from Nephrology standpoint. Discussed discharge planning with Dr. Chamorro. Discharge medications have also been discussed with Dr. Chamorro. She will follow up with Dr. Rich as outpatient. VV/MODL Voice ID: [id number] Report ID: [id number]
[2020-08-17 14:20] VITALS: BP 113/71; TEMP 97.7
[2020-08-17] MEDS ORDERED: GLUCERNA SHAKE 237 ML CAN PO SCH (21:00)
[2020-08-18] MEDS ORDERED: COENZYME Q10 100 MG PO SCH (09:00)
== END 2020-08-17 14:37 | disposition home or self-care (01) ==
LOC: ER 18:30 → ERHOLD 21:41 → INTOOBSV 21:41 → 2ND 22:31
PROVIDERS: ADMIT Family Medicine; ATTEND Family Medicine
DX: E10.641 Type 1 diabetes mellitus with hypoglycemia with coma (principal); N17.0 Acute kidney failure with tubular necrosis; I13.0 Hypertensive heart and chronic kidney disease with heart failure and stage 1 through stage 4 chronic kidney disease, or unspecified chronic kidney disease; N18.30 Chronic kidney disease, stage 3 unspecified; I25.10 Atherosclerotic heart disease of native coronary artery without angina pectoris; Z20.828 Contact with and (suspected) exposure to other viral communicable diseases; I50.32 Chronic diastolic (congestive) heart failure; D63.1 Anemia in chronic kidney disease; G25.81 Restless legs syndrome; E78.5 Hyperlipidemia, unspecified; K21.9 Gastro-esophageal reflux disease without esophagitis; L20.9 Atopic dermatitis, unspecified; F32.9 Major depressive disorder, single episode, unspecified; Z95.1 Presence of aortocoronary bypass graft; E87.5 Hyperkalemia; E83.51 Hypocalcemia; E10.22 Type 1 diabetes mellitus with diabetic chronic kidney disease
CPT/HCPCS: 87088; 85025 ×3; 87086; 80048 ×3; 36415 ×2; 83735 ×2; 82947 ×15; 84443; 83036; 84439; 82728; 83540; 84466; 96360; 99285; U0003; J1644 ×3; Q5106; J7030 ×3; G0378 ×3; 81003; 81015; J7040

== ENCOUNTER 2020-12-13 20:12 | Inpatient (IN) | payer OTHER ==
--- NOTE | 2020-12-13 21:05 | RAD REPORT ---
EXAM DESCRIPTION: RAD - Chest Single View - 12/13/2020 8:52 pm CLINICAL HISTORY: volume overload Chest pain. COMPARISON: Chest Pa And Lat (2 Views) dated 11/12/2020; Chest Single View dated 09/08/2019; Chest Pa And Lat (2 Views) dated 09/07/2019 FINDINGS: Portable technique limits examination quality. Mild pulmonary edema is seen. Moderate right pleural effusion. The heart is mildly enlarged in size w ith sternotomy wires present. IMPRESSION: Mild to moderate CHF versus volume overload pattern.
[2020-12-13 21:13] LABS: Hematocrit 24.8 % (36.0-45.0); MPV 7.8 fL (7.6-11.3); RBC Red Blood Cell Count 3.75 M/uL (3.86-4.86)
[2020-12-13 21:23] LABS: Protime INR 1.3
[2020-12-13 21:33] LABS: ALT/SGPT 22 U/L (12-78); AST/SGOT 17 U/L (15-37); Albumin 2.9 g/dL (3.4-5.0); Alkaline Phosphatase 135 U/L (45-117); BUN Blood Urea Nitrogen 60 mg/dL (7-18); Bicarbonate 27 mmol/L (21-32); Bilirubin Total 0.6 mg/dL (0.2-1.0); Glucose Level 175 mg/dL (74-106); NT PRO-BNP 8848 pg/mL (<125); Potassium 3.7 mmol/L (3.5-5.1); Protein, Total 6.6 g/dL (6.4-8.2); Sodium Level 139 mmol/L (136-145); Troponin I < 0.02 ng/mL (0.0-0.045)
[2020-12-13 21:49] LABS: Blood Morphology Comment NOTED (NOT SEEN); Hypochromasia 1+; Platelet Estimate ADEQ
[2020-12-13 21:50] LABS: Absolute Lymphocytes (CBC) 1.2 K/uL (0.7-4.9)
[2020-12-13] MEDS ORDERED: GLUCAGON 1 MG/VIAL IM PRN (21:58)
[2020-12-13] MEDS ORDERED: D50W 25 GM/50 ML SYRINGE IV PRN (21:58)
[2020-12-13] MEDS: FUROSEMIDE 40 MG/4 ML VIAL IV SCH (22:03)
[2020-12-13] MEDS ORDERED: ONDANSETRON 4 MG/2 ML VIAL IV PRN (22:05)
[2020-12-13] MEDS ORDERED: ACETAMINOPHEN 500 MG TAB PO PRN (22:05)
[2020-12-13 23:17] VITALS: BMI 28.6
[2020-12-14] MEDS ORDERED: HEPARIN 5000 UNIT/ML 1 ML VIAL SQ SCH (01:00)
--- NOTE | 2020-12-14 01:35 | P.HP ---
Certification for Inpatient Patient admitted to: Inpatient With expected LOS: >2 Midnights Patient will require the following post-hospital care: None Practitioner: I am a practitioner with admitting privileges, knowledge of patient current condition, hospital course, and medical plan of care. Services: Services provided to patient in accordance with Admission requirements found in Title 42 Section 412.3 of the Code of Federal Regulations <Dony Grullon - Last Filed: 12/14/20 01:44> Patient History Date of Service: 12/14/20 Primary Care Provider: Alfonzo Reason for admission: CHF exacerbation History of Present Illness: Ms. Irene is a 70 yo female with CHF, h/o CABG, DM, and PVD here today with wo rsening SOB for the past week. She says she has put on 40lbs of fluid last month. She went to her hook and eye attacher who increased her Lasix and spironolactone, but on her next visit, she had increased another 5lb. She initially felt better with the increased Lasix, but still had cough, wheezing, and CELESTE. She denies chest pain, night sweats, and chills. She says she has been admitted for CHF exacerbations 3x in the past year and improves with IV lasix. Her towel distributor is Dr. Morales. H/H 8.0/24.8, BUN 60, Cr 1.71, GFR 29, BNP 8848. CXR shows mild to moderate CHF versus volume overload pattern. - Past Medical/Surgical History Has patient received pneumonia vaccine in the past: Yes Diabetic: Yes -: Diabetes mellitus type 1-IDDM -: Chronic diastolic congestive heart failure -: leg swelling -: Hyperlipidemia -: Ectopic dermatitis -: CAD -: triple bypass 2006 -: PVD -: Hysterectomy -: -: L shoulder surgery -: CABG-triple bypass x3, -: carpal tunnel bilaterally -: trigger thumb bilaterally Psychosocial/ Personal History: Patient lives at home with her family - Family History Mother -: Cancer Notes: Breast and lung cancer - Social History Smoking Status: Never smoker Alcohol use: No CD- Drugs: No Caffeine use: No Place of Residence: Home <Dony Grullon - Last Filed: 12/14/20 01:44> Date of Service: 12/14/20 <Naif Francis - Last Filed: 12/15/20 10:30> Allergies codeine Allergy (Verified 08/15/20 23:07) Nausea/Vomiting dupilumab [From Dupixent Pen] Allergy (Verified 12/13/20 20:51) Itching/Hives/Rash torsemide Allergy (Verified 12/13/20 22:43) weakness; no energy Home Medications: Cetirizine HCl [Zyrtec*] 10 mg PO DAILY 02/09/14 Fluoxetine HCl [Prozac*] 20 mg PO DAILY 02/09/14 Omeprazole Magnesium [Prilosec Otc] 20 mg PO DAILY 02/09/14 Ubidecarenone [Coenzyme Q10*] 100 mg PO DAILY 02/09/14 Pravastatin Sodium 1 tab PO DAILY 08/16/20 Ropinirole HCl 2 tab PO BEDTIME 08/16/20 Insulin Lispro [Humalog*] See Protocol SQ BEDTIME #1 vial 08/17/20 Cholecalciferol (Vitamin D3) [Vitamin D3] 1 cap PO DAILY 12/13/20 Cyanocobalamin (Vitamin B-12) [Vitamin B12] 1,000 mcg PO DAILY 12/13/20 Furosemide [Lasix*] 80 mg PO DAILY 12/13/20 Insulin Glargine,Hum.rec.anlog [Lantus Solostar] 22 units SQ DAILY 12/13/20 Oxybutynin Chloride 5 mg PO DAILY 12/13/20 Spironolactone 50 mg PO DAILY 12/13/20 Review of Systems General: Weakness, Malaise, As per HPI Eyes: Unremarkable ENT: Unremarkable Respiratory: Cough, Shortness of Breath, SOB with Excertion, Wheezing, As per HPI Cardiovascular: Orthopnea, Paroxysmal Noc. Dyspnea, Edema, As per HPI Gastrointestinal: Unremarkable Genitourinary: Unremarkable Musculoskeletal: Unremarkable Integumentary: Unremarkable Neurological: Unremarkable Lymphatics: Unremarkable <Dony Grullon - Last Filed: 12/14/20 01:44> Physical Examination - Vital Signs Temperature: 97.0 F Blood Pressure: 156/67 Pulse: 80 Respirations: 18 Pulse Ox (%): 97 - Physical Exam General: Alert, In no apparent distress, Oriented x3, Other (continuous cough, SOB between sentences) HEENT: Atraumatic, Normocephalic, PERRLA, Mucous membr. moist/pink, EOMI, Sclerae nonicteric Neck: Supple, 2+ carotid pulse no bruit, JVD not distended, No Thyromegaly, No LAD Respiratory: Diminished, Crackles/rales Cardiovascular: Normal pulses, Regular rate/rhythm, Normal S1 S2, No gallops, No rubs, No murmurs, Edema Capillary refill: <2 Seconds Gastrointestinal: Normal bowel sounds, Soft and benign, Non-distended, No ascites, No tenderness, No masses, No rebound, No guarding Musculoskeletal: No clubbing, No swelling, No contractures, No erythema, No tenderness, No warmth Integumentary: No rashes, No significant lesion, No warmth, No cyanosis, Skin breakdown, Tenderness/swelling, Erythema, Other (weeping wounds on bilateral lower legs) Neurological: Normal strength at 5/5 x4 extr, Normal tone, Sensation intact, Cranial nerves 3-12 intact, Normal affect, Abnormal speech Lymphatics: No axilla or inguinal lymphadenopathy - Studies Laboratory Data (last 24 hrs) 12/13/20 21:00: PT 15.0 H, INR 1.30, APTT 31.3 12/13/20 21:00: Sodium 139, Potassium 3.7, BUN 60 H, Creatinine 1.71 H, Glucose 175 H, Total Bilirubin 0.6, AST 17, ALT 22, Alkaline Phosphatase 135 H, Troponin I < 0.02 12/13/20 21:00: WBC 6.90, Hgb 8.0 L, Hct 24.8 L, Plt Count 347 <Dony Grullon - Last Filed: 12/14/20 01:44> - Studies Laboratory Data (last 24 hrs) 12/15/20 05:34: Sodium 137, Potassium 4.2, BUN 61 H, Creatinine 1.61 H, Glucose 244 H, Magnesium 1.7 L <Naif Francis - Last Filed: 12/15/20 10:30> Assessment and Plan - Problems (Diagnosis) (1) CHF exacerbation Current Visit: Yes Status: Acute Qualifiers: Heart failure type: unspecified Qualified Code(s): I50.9 - Heart failure, unspecified (2) Type 1 diabetes mellitus Current Visit: Yes Status: Acute Qualifiers: Diabetes mellitus complication status: with kidney complications Diabetes mellitus complication detail: with chronic kidney disease Chronic kidney disease stage: stage 4 (severe) Qualified Code(s): E10.22 - Type 1 diabetes mellitus with diabetic chronic kidney disease; N18.4 - Chronic kidney disease, stage 4 (severe) (3) PVD (peripheral vascular disease) Current Visit: Yes Status: Chronic (4) History of coronary artery bypass graft x 3 Current Visit: Yes Status: Chronic (5) Chronic anemia Current Visit: Yes Status: Chronic (6) CKD (chronic kidney disease) stage 4, GFR 15-29 ml/min Current Visit: Yes Status: Chronic - Plan Lasix 40 mg IV BID and home dose of spironolactone daily weights, and fluid restriction of 1L per day will continue to monitor BP O2 PRN to keep sats >93% Pulm consulted sliding scale linsulin and accuchecks hemoglobin stable from last admission, however patient had normal MCV on last admission now MCV 66. iron panel pending. likely iron deficiency on top of anemia of chronic disease kidney function appears to be at baseline from last discharge, will continue to monitor as we diurese patient wound care consulted for weeping wounds on bilateral legs will reconcile and continue home medications - Advance Directives Does patient have a Living Will: Yes Does patient have a Durable POA for Healthcare: No <Dony Grullon - Last Filed: 12/14/20 01:44> Date of Service: 12/14/20 Chart reviewed. Agree with plan of care as mentioned above. Continue with diuresing diffuse anasarca. Wound care consultation appreciated. Echocardiogram pending. I believe most likely this is related to venous insufficiency as she has venous insufficiency ulcers. <Naif Francis - Last Filed: 12/15/20 10:30>
[2020-12-14] MEDS: ROPINIROLE HCL 1 MG TAB PO SCH ×2 (01:39→21:04)
[2020-12-14 04:23] LABS: Urine Appearance CLEAR (Clear); Urine Bilirubin NEGATIVE (Negataive); Urine Blood NEGATIVE (Negative); Urine Color YELLOW (Yellow); Urine Glucose NEGATIVE (Negative); Urine Protein NEGATIVE (Negative); Urine Urobilinogen 0.2 mg/dL (0.2-1.0)
[2020-12-14 04:40] LABS: Urine Microscopic Reflex NO UMIC
[2020-12-14 05:41] LABS: Hematocrit 24.8 % (36.0-45.0); MPV 7.5 fL (7.6-11.3); RBC Red Blood Cell Count 3.76 M/uL (3.86-4.86)
[2020-12-14 06:14] LABS: Bilirubin Total 0.5 mg/dL (0.2-1.0); Ferritin 13.7 ng/mL (8-388); Magnesium 1.7 mg/dL (1.8-2.4); Phosphorus 3.5 mg/dL (2.5-4.9); Potassium 3.6 mmol/L (3.5-5.1); Protein, Total 6.7 g/dL (6.4-8.2)
[2020-12-14] MEDS: INSULIN -REGULAR HUMAN 50 UNIT/0.5 ML ML SQ SCH ×4 (07:30→21:01)
[2020-12-14] MEDS: FUROSEMIDE 40 MG/4 ML VIAL IV SCH ×3 (08:35→21:02)
--- NOTE | 2020-12-14 08:38 | P.PN ---
Subjective Date of Service: 12/14/20 Primary Care Provider: Alfonzo Chief Complaint: CHF exacerbation Subjective: Improving, Other (Patient admitted from my office complaining of severe shortness of breath lower extremity edema and cough worsening of congestive heart failure is not doing much better still very swollen) Review of Systems General: Weakness Respiratory: Cough, Shortness of Breath Cardiovascular: Edema Physical Examination - Vital Signs Temperature: 97.6 F Blood Pressure: 149/67 Pulse: 78 Respirations: 19 Pulse Ox (%): 98 - Physical Exam General: Alert, Oriented x3, Moderate distress Respiratory: Crackles/rales Cardiovascular: Regular rate/rhythm Gastrointestinal: Normal bowel sounds - Studies Laboratory Data (last 24 hrs) 12/14/20 05:21: Sodium 138, Potassium 3.6, BUN 60 H, Creatinine 1.63 H, Glucose 134 H, Phosphorus 3.5, Magnesium 1.7 L D, Total Bilirubin 0.5, AST 17, ALT 22, Alkaline Phosphatase 132 H 12/14/20 05:21: WBC 7.20, Hgb 8.1 L, Hct 24.8 L, Plt Count 380 12/13/20 21:00: PT 15.0 H, INR 1.30, APTT 31.3 12/13/20 21:00: Sodium 139, Potassium 3.7, BUN 60 H, Creatinine 1.71 H, Glucose 175 H, Total Bilirubin 0.6, AST 17, ALT 22, Alkaline Phosphatase 135 H, Troponin I < 0.02 12/13/20 21:00: WBC 6.90, Hgb 8.0 L, Hct 24.8 L, Plt Count 347 Assessment & Plan - Problems (Diagnosis) (1) CHF exacerbation Current Visit: Yes Status: Acute Plan: Patient is 70 years of age admitted from a clinic with worsening of congestive heart failure oxygenation satisfactory she has gross anasarca continue with high-dose diuretics increase spironolactone add entresto patient has a microcytosis iron deficiency had iron black stools will need to look for a GI bleed patient has renal insufficiency echocardiogram ordered patient has been short of breath for quite some time Qualifiers: Heart failure type: unspecified Qualified Code(s): I50.9 - Heart failure, unspecified
[2020-12-14] MEDS: ENOXAPARIN 30 MG/0.3 ML SQ SCH (08:43)
[2020-12-14] MEDS: SPIRONOLACTONE 25 MG TABLET PO SCH ×2 (08:44→21:03)
[2020-12-14 08:53] LABS: Anisocytosis 1+; Blood Morphology Comment NOTED (NOT SEEN); Hypochromasia 2+; Platelet Estimate ADEQ
[2020-12-14] MEDS ORDERED: CETIRIZINE HCL 5 MG TABLET PO PRN (09:00)
[2020-12-14] MEDS: SACUBITRIL/VALSARTAN 24/26 MG TAB PO SCH ×2 (09:00→21:04)
[2020-12-14] MEDS ORDERED: SPIRONOLACTONE 25 MG TABLET PO SCH (09:00)
[2020-12-14] MEDS ORDERED: POTASSIUM CL SA 10 MEQ TAB PO ONE (09:00)
[2020-12-14] MEDS ORDERED: MAGNESIUM SULFATE 1 gm IVPB 1 GM/100 ML BAG IV ONE (09:00)
[2020-12-14 09:28] LABS: Thyroid Stimulating Hormone 9.76 uIU/mL (0.360-3.740)
[2020-12-14] MEDS ORDERED: D50W 25 GM/50 ML SYRINGE IV PRN (09:52)
[2020-12-14] MEDS ORDERED: GLUCAGON 1 MG/VIAL IM PRN (09:52)
[2020-12-14] MEDS: SOD FERRIC GLUC COMPLX/SUCROSE 125 MG in NA CHLORIDE 0.9% 100 ML IV SCH (11:31)
--- NOTE | 2020-12-14 15:36 | RAD REPORT ---
EXAM DESCRIPTION: NM - Vent Perfusion VQ Scan - 12/14/2020 3:20 pm CLINICAL HISTORY: SOB, elevated ddimer COMPARISON: Portable chest December 13, portable chest November 12 TECHNIQUE: The patient was administered 19.6 mCi Xenon 133 gas with posterior projection inspiration , equilibrium, and washout views obtained. The patient was then administered 6.9 mCi Tc-99m MAA label ed RBCs followed by standard 8 view protocol. FINDINGS: Focal ventilation defect is present in the left base. Chest film shows moderate-size pleur al effusion with left base atelectasis that would explain this dilation deficit. Upper left lung fiel d and the right lung field show no ventilation abnormalities. Washout view showed delayed clearing of radiopharmaceutical with no significant air trapping component seen. Diminished perfusion is seen in the left base matching the ventilation defect in the chest film abnor mality. Elsewhere there is no segmental or subsegmental sized perfusion defects. IMPRESSION: Normal to low probability V/Q scan for pulmonary embolism. Moderate-size left pleural effusion and atelectasis resulting in left base matching defects.
[2020-12-14] MEDS ORDERED: INSULIN LISPRO 100 UNIT/1 ML SQ SCH (21:00)
[2020-12-14] MEDS ORDERED: HOME MED 1 EA UNK (Ropinirole Hcl [Ropinirole Hcl] 2 MG Tablet) PO SCH (21:00)
--- NOTE | 2020-12-14 22:32 | P.CNS ---
Date of Consult: 12/14/20 Reason for Consult: CLARA/ CKD Requesting Physician: Naif Francis Primary Care Provider: Alfonzo Chief Complaint: CHF exacerbation History of Present Illness: 70 yo WF CHF presented to the ER with 1 week of moderate, progressive dyspnea with associated weight gain and cough. Edema. Ms. Irene is a 70 yo female with CHF, h/o CABG, DM, and PVD here today with worsening SOB for the past week. She says she has put on 40lbs of fluid last month. She went to her hand i tube bender who increased her Lasix and spironolactone, but on her next visit, she had increased another 5lb. She initially felt better with the increased Lasix, but still had cough, wheezing, and CELESTE. She denies chest pain, night sweats, and chills. She says she has been admitted for CHF exacerbations 3x in the past year and improves with IV lasix. Her manager eligibility is Dr. Morales. H/H 8.0/24.8, BUN 60, Cr 1.71, GFR 29, BNP 8848. CXR shows mild to moderate CHF versus volume overload pattern. Allergies codeine Allergy (Verified 08/15/20 23:07) Nausea/Vomiting dupilumab [From [email or web address]] Allergy (Verified 12/13/20 20:51) Itching/Hives/Rash torsemide Allergy (Verified 12/13/20 22:43) weakness; no energy Home medications list reviewed: Yes Home Medications: Cetirizine HCl [Zyrtec*] 10 mg PO DAILY 02/09/14 Fluoxetine HCl [Prozac*] 20 mg PO DAILY 02/09/14 Omeprazole Magnesium [Prilosec Otc] 20 mg PO DAILY 02/09/14 Ubidecarenone [Coenzyme Q10*] 100 mg PO DAILY 02/09/14 Pravastatin Sodium 1 tab PO DAILY 08/16/20 Ropinirole HCl 2 tab PO BEDTIME 08/16/20 Insulin Lispro [Humalog*] See Protocol SQ BEDTIME #1 vial 08/17/20 Cholecalciferol (Vitamin D3) [Vitamin D3] 1 cap PO DAILY 12/13/20 Cyanocobalamin (Vitamin B-12) [Vitamin B12] 1,000 mcg PO DAILY 12/13/20 Furosemide [Lasix*] 80 mg PO DAILY 12/13/20 Insulin Glargine,Hum.rec.anlog [Lantus Solostar] 22 units SQ DAILY 12/13/20 Oxybutynin Chloride 5 mg PO DAILY 12/13/20 Spironolactone 50 mg PO DAILY 12/13/20 - Past Medical/Surgical History Diabetic: Yes -: Diabetes mellitus type 1-IDDM -: Chronic diastolic congestive heart failure -: leg swelling -: Hyperlipidemia -: Ectopic dermatitis -: CAD -: triple bypass 2006 -: PVD -: Hysterectomy -: -: L shoulder surgery -: CABG-triple bypass x3, -: carpal tunnel bilaterally -: trigger thumb bilaterally Psychosocial/ Personal History: Patient lives at home with her family - Family History Mother Medical History: Cancer Notes: Breast and lung cancer - Social History Smoking Status: Never smoker Alcohol use: No CD- Drugs: No Caffeine use: No Place of Residence: Home Review of Systems 10-point ROS is otherwise unremarkable General: Weakness, Malaise Respiratory: Shortness of Breath, SOB with Excertion Cardiovascular: Orthopnea, Edema Integumentary: Lesions Neurological: Weakness Physical Examination Temp Pulse Resp BP Pulse Ox 97.9 F 78 20 137/61 98 12/14/20 15:00 12/14/20 21:03 12/14/20 15:00 12/14/20 21:03 12/14/20 15:00 General: Oriented x3, Cooperative, Mild distress HEENT: Atraumatic Neck: Supple, JVD distended Respiratory: Diminished Cardiovascular: Regular rate/rhythm, Edema Gastrointestinal: Soft and benign, No guarding, Distended Musculoskeletal: No clubbing, No contractures Integumentary: No cyanosis, Skin lesion Neurological: Normal speech Laboratory Data (last 24 hrs) 12/14/20 05:21: Sodium 138, Potassium 3.6, BUN 60 H, Creatinine 1.63 H, Glucose 134 H, Phosphorus 3.5, Magnesium 1.7 L D, Total Bilirubin 0.5, AST 17, ALT 22, Alkaline Phosphatase 132 H 12/14/20 05:21: WBC 7.20, Hgb 8.1 L, Hct 24.8 L, Plt Count 380 Imagings Data: EXAM DESCRIPTION: RAD - Chest Single View - 12/13/2020 8:52 pm CLINICAL HISTORY: volume overload Chest pain. COMPARISON: Chest Pa And Lat (2 Views) dated 11/12/2020; Chest Single View dated 09/08/2019; Chest Pa And Lat (2 Views) dated 09/07/2019 FINDINGS: Portable technique limits examination quality. Mild pulmonary edema is seen. Moderate right pleural effusion. The heart is mildly enlarged in size with sternotomy wires present. IMPRESSION: Mild to moderate CHF versus volume overload pattern. EXAM DESCRIPTION: NM - Vent Perfusion VQ Scan - 12/14/2020 3:20 pm IMPRESSION: Normal to low probability V/Q scan for pulmonary embolism. Moderate-size left pleural effusion and atelectasis resulting in left base matching defects. Conclusions/Impression: A/P CLARA likely due to CRS CKD III -No NSAIDs -Continue diuretic therapy Hypomagnesemia -Agree with IV magnesium Diastolic CHF, A/C Anasarca -Continue furosemide and spironolactone -Continue Entresto -Continue CoQ10 DM I with CKD -Continue Lantus and RISS Moderate malnutrition -Maintain nutrition Anemia in chronic illness Iron deficiency 2.2% -Agree with IV iron Thank you kindly for the consultation.
[2020-12-15 06:08] LABS: Magnesium 1.7 mg/dL (1.8-2.4); Potassium 4.2 mmol/L (3.5-5.1)
[2020-12-15] MEDS ORDERED: MAGNESIUM SULFATE 1 gm IVPB 1 GM/100 ML BAG IV ONE (06:15)
[2020-12-15] MEDS: INSULIN GLARGINE 100 UNITS/ML SQ SCH (08:33)
[2020-12-15] MEDS: INSULIN -REGULAR HUMAN 50 UNIT/0.5 ML ML SQ SCH ×4 (08:33→21:00)
[2020-12-15] MEDS: SPIRONOLACTONE 25 MG TABLET PO SCH ×2 (08:38→20:13)
[2020-12-15] MEDS: ATORVASTATIN 10 MG TAB PO SCH (08:41)
[2020-12-15] MEDS: PANTOPRAZOLE 40MG TABLET PO SCH (08:41)
[2020-12-15] MEDS: CYANOCOBALAMIN 1,000 MCG TAB PO SCH (08:42)
[2020-12-15] MEDS: FUROSEMIDE 40 MG/4 ML VIAL IV SCH ×2 (08:46→20:14)
[2020-12-15] MEDS: ENOXAPARIN 30 MG/0.3 ML SQ SCH (08:47)
[2020-12-15] MEDS: OXYBUTYNIN CHLORIDE 5 MG TAB PO SCH (08:47)
--- NOTE | 2020-12-15 08:54 | EKG ---
Test Date: 2020-12-13 Test Time: 20:55:10 Taxonomy Teacher: DANIEL MEASUREMENT RESULTS: Intervals: Rate: 73 [place]: QRSD: 72 QT: 428 QTc: 471 [place]: P: [place]: QRS: 67 T: 172 INTERPRETIVE STATEMENTS: Atrial fibrillation Low voltage QRS Cannot rule out Anterior infarct, age undetermined Abnormal ECG Compared to ECG 09/08/2019 18:21:03 Low QRS voltage now present Myocardial infarct finding now present Sinus rhythm no longer present T-wave abnormality no longer present Possible ischemia no longer present Electronically Signed On 12-15-20 08:50:35 CDT by Jhon Sy
[2020-12-15] MEDS: VITAMIN D 1000 UNIT TAB PO SCH (08:58)
[2020-12-15] MEDS: FUROSEMIDE 40 MG TABLET PO SCH (08:58)
[2020-12-15] MEDS: FLUOXETINE 20 MG CAP PO SCH (08:59)
[2020-12-15] MEDS: SACUBITRIL/VALSARTAN 24/26 MG TAB PO SCH ×2 (09:00→20:13)
[2020-12-15] MEDS: MEDIHONEY 44 ML TOPICAL TUBE TOP SCH ×3 (09:00→21:00)
--- NOTE | 2020-12-15 10:38 | P.PN ---
Subjective Date of Service: 12/15/20 Patient is feeling a little better. Patient continues to be diuresed. Wounds continue to be healed. Echocardiogram pending Review of Systems 10-point ROS is otherwise unremarkable Physical Examination - Vital Signs Temperature: 97.6 F Blood Pressure: 118/52 Pulse: 83 Respirations: 18 Pulse Ox (%): 99 - Physical Exam General: Alert, In no apparent distress, Oriented x3 Respiratory: Clear to auscultation bilaterally, Normal air movement Cardiovascular: Regular rate/rhythm, Normal S1 S2, No murmurs Gastrointestinal: Normal bowel sounds, Soft and benign, Non-distended, No tenderness Musculoskeletal: Swelling, Erythema, Tenderness Integumentary: Venous stasis ulcer Neurological: Normal strength at 5/5 x4 extr, Sensation intact, Cranial nerves 3-12 intact - Studies Laboratory Data (last 24 hrs) 12/15/20 05:34: Sodium 137, Potassium 4.2, BUN 61 H, Creatinine 1.61 H, Glucose 244 H, Magnesium 1.7 L Medications List Reviewed: Yes Assessment & Plan - Problems (Diagnosis) (1) Venous insufficiency of both lower extremities Status: Acute (2) Venous ulcers of both lower extremities Status: Acute (3) CHF exacerbation Status: Acute Qualifiers: Heart failure type: diastolic Qualified Code(s): I50.33 - Acute on chronic diastolic (congestive) heart failure (4) CKD (chronic kidney disease) stage 4, GFR 15-29 ml/min Status: Chronic (5) History of coronary artery bypass graft x 3 Status: Chronic (6) PVD (peripheral vascular disease) Status: Chronic - Plan 1. Echocardiogram pending/VQ scan was negative 2. Continue wound care 3. Continue with gently diuresing patient 4. Cardiology consultation appreciated 5. Monitor protein intake 6. Strict I's and O's 7. Repeat CXR 8. Daily weights 9. Education regarding diet and treatment of congestive heart failure Discharge Plan: Home Plan to discharge in: Greater than 2 days - Advance Directives Does patient have a Living Will: Yes Does patient have a Durable POA for Healthcare: No Critical Care: No Time Spent Managing PTS Care (In Minutes): 35
[2020-12-15] MEDS: SOD FERRIC GLUC COMPLX/SUCROSE 125 MG in NA CHLORIDE 0.9% 100 ML IV SCH (18:31)
[2020-12-15] MEDS: ROPINIROLE HCL 1 MG TAB PO SCH (20:12)
[2020-12-16] MEDS: INSULIN -REGULAR HUMAN 50 UNIT/0.5 ML ML SQ SCH ×4 (07:30→20:59)
--- NOTE | 2020-12-16 08:14 | ECHO ---
HEIGHT: 5 ft 4 in WEIGHT: 162 lb 9.6 oz DATE OF STUDY: 12/15/[address]: Bethel Lechuga MD 2-DIMENSIONAL: YES M.MODE: YES DOPPLER: YES COLOR FLOW: YES TDS: PORTABLE: DEFINITY: BUBBLE STUDY: DIAGNOSIS: CONGESTIVE HEART FAILURE CARDIAC HISTORY: CATHERIZATION: NO SURGERY: YES PROSTHETIC VALVE: NO PACEMAKER: NO MEASUREMENTS (cm) DIASTOLIC (NORMALS) SYSTOLIC (NORMALS) IVSd 0.9 (0.6-1.2) LA Diam 3.0 (1.9-4.0) LVEF 50-55% LVIDd 5.1 (3.5-5.7) LVIDs 3.8 (2.0-3.5) %FS 25% LVPWd 0.9 (0.6-1.2) Ao Diam 2.4 (2.0-3.7) 2 DIMENSIONAL ASSESSMENT: RIGHT ATRIUM: NORMAL LEFT ATRIUM: NORMAL RIGHT VENTRICLE: NORMAL LEFT VENTRICLE: SEE BELOW TRICUSPID VALVE: MILD TRICUSPID REGURGITATION MITRAL VALVE: MILD MITRAL REGURGITATION PULMONIC VALVE: MILD PULMONARY INSUFFIENCY AORTIC VALVE: NORMAL PERICARDIAL EFFUSION: NONE AORTIC ROOT: NORMAL LEFT VENTRICULAR WALL MOTION: MILD GLOBAL HYPOKINESIS DOPPLER/COLOR FLOW: SEE BELOW COMMENTS: LOW NORMAL LEFT VENTRICULAR EJECTION FRACTION 50-55%. UNABLE TO EVALUATE WALL MOTION DUE TO POOR WINDOW. MILD MITRAL AND TRICUSPID REGURGITATION. DIASTOLIC DYSFUNCTION. MODERATE PULMONARY HYPERTENSION WITH RIGHT VENTRICULAR SYSTOLIC PRESSURE OF 50-55 mmHg. TECHNOLOGIST: CATARINO STANFORD
[2020-12-16] MEDS: ENOXAPARIN 30 MG/0.3 ML SQ SCH (08:40)
[2020-12-16] MEDS: CETIRIZINE HCL 5 MG TABLET PO SCH (08:41)
[2020-12-16] MEDS: PANTOPRAZOLE 40MG TABLET PO SCH (08:41)
[2020-12-16] MEDS: FLUOXETINE 20 MG CAP PO SCH (08:41)
[2020-12-16] MEDS: FUROSEMIDE 40 MG/4 ML VIAL IV SCH ×2 (08:42→20:58)
[2020-12-16] MEDS: SACUBITRIL/VALSARTAN 24/26 MG TAB PO SCH ×2 (08:42→20:58)
[2020-12-16] MEDS: VITAMIN D 1000 UNIT TAB PO SCH (08:42)
[2020-12-16] MEDS: CYANOCOBALAMIN 1,000 MCG TAB PO SCH (08:43)
[2020-12-16] MEDS: OXYBUTYNIN CHLORIDE 5 MG TAB PO SCH (08:43)
[2020-12-16] MEDS: SPIRONOLACTONE 25 MG TABLET PO SCH ×2 (08:43→20:57)
[2020-12-16] MEDS: ATORVASTATIN 10 MG TAB PO SCH (08:43)
[2020-12-16] MEDS: FUROSEMIDE 40 MG TABLET PO SCH (08:44)
[2020-12-16] MEDS: INSULIN GLARGINE 100 UNITS/ML SQ SCH (08:44)
[2020-12-16] MEDS: MEDIHONEY 44 ML TOPICAL TUBE TOP SCH (08:46)
[2020-12-16] MEDS: SOD FERRIC GLUC COMPLX/SUCROSE 125 MG in NA CHLORIDE 0.9% 100 ML IV SCH (10:03)
[2020-12-16] MEDS: COENZYME Q10- 200 MG CAP PO SCH (10:03)
[2020-12-16] MEDS ORDERED: FUROSEMIDE 40 MG/4 ML VIAL IV ONE (13:52)
[2020-12-16] MEDS ORDERED: D50W 25 GM/50 ML VIAL IV PRN (20:00)
--- NOTE | 2020-12-16 20:21 | P.PN ---
Date of Service: 12/16/20 Vital Signs Temp Pulse Resp BP Pulse Ox 98.1 F 70 16 124/59 L 100 12/16/20 16:00 12/16/20 16:00 12/16/20 16:00 12/16/20 16:00 12/16/20 16:00 Medications Acetaminophen (Acetaminophen 500 Mg Tab) 500 mg PO Q4HP PRN PRN Reason: Pain scale 2-4 (Mild) Last Admin: 12/15/20 11:15 Dose: 500 mg Documented by: Atorvastatin Calcium (Atorvastatin 10 Mg Tab) 10 mg PO DAILY [facility] Last Admin: 12/16/20 08:43 Dose: 10 mg Documented by: Cetirizine HCl (Cetirizine Hcl 5 Mg Tablet) 10 mg PO DAILY [facility] Last Admin: 12/16/20 08:41 Dose: 10 mg Documented by: Cholecalciferol (Vitamin D 1000 Unit Tab) 2,000 unit PO DAILY [facility] Last Admin: 12/16/20 08:42 Dose: 2,000 unit Documented by: Coenzyme Q10 (Coenzyme Q10- 200 Mg Cap) 200 mg PO DAILY [facility] Last Admin: 12/16/20 10:03 Dose: 200 mg Documented by: Cyanocobalamin (Cyanocobalamin 1,000 Mcg Tab) 1,000 mcg PO DAILY [facility] Last Admin: 12/16/20 08:43 Dose: 1,000 mcg Documented by: Dextrose (D50w 25 Gm/50 Ml Vial) 12.5 gm IV PRN PRN; Protocol PRN Reason: HYPOGLYCEMIA Emollient Gel (Medihoney 44 Ml Topical Tube) 1 appl TOP DAILY [facility] Last Admin: 12/16/20 08:46 Dose: 1 appl Documented by: Enoxaparin Sodium (Enoxaparin 30 Mg/0.3 Ml) 30 mg SQ DAILY [facility] Last Admin: 12/16/20 08:40 Dose: 30 mg Documented by: Fluoxetine HCl (Fluoxetine 20 Mg Cap) 20 mg PO DAILY [facility] Last Admin: 12/16/20 08:41 Dose: Not Given Documented by: Furosemide (Furosemide 40 Mg/4 Ml Vial) 80 mg IV BID [facility] Last Admin: 12/16/20 08:42 Dose: 80 mg Documented by: Furosemide (Furosemide 40 Mg Tablet) 80 mg PO DAILY [facility] Last Admin: 12/16/20 08:44 Dose: Not Given Documented by: Glucagon (Glucagon 1 Mg/Vial) 1 mg IM 1X PRN; Protocol PRN Reason: HYPOGLYCEMIA Ferric Sodium Gluconate Complex 125 mg/ Sodium Chloride 110 mls @ 100 mls/hr IV DAILY [facility] Stop: 12/21/20 10:05 Last Admin: 12/16/20 10:03 Dose: 110 mls Documented by: Insulin Glargine (Insulin Glargine 100 Units/Ml) 22 units SQ DAILY [facility] Last Admin: 12/16/20 08:44 Dose: Not Given Documented by: Insulin Human Regular (Insulin -Regular Human 50 Unit/0.5 Ml Ml) 0 unit SQ ACHS [facility]; Protocol Last Admin: 12/16/20 16:35 Dose: 2 unit Documented by: Ondansetron HCl (Ondansetron 4 Mg/2 Ml Vial) 4 mg IV Q6HP PRN PRN Reason: NAUSEA / VOMITING Oxybutynin Chloride (Oxybutynin Chloride 5 Mg Tab) 5 mg PO DAILY [facility] Last Admin: 12/16/20 08:43 Dose: 5 mg Documented by: Pantoprazole Sodium (Pantoprazole 40mg Tablet) 40 mg PO DAILY [facility] Last Admin: 12/16/20 08:41 Dose: 40 mg Documented by: Ropinirole HCl (Ropinirole Hcl 1 Mg Tab) 4 mg PO BEDTIME [facility] Last Admin: 12/15/20 20:12 Dose: 4 mg Documented by: Sodium Chloride (Flush Normal Saline 10 Ml) 10 ml IV BID [facility] Last Admin: 12/16/20 08:46 Dose: 10 ml Documented by: Spironolactone (Spironolactone 25 Mg Tablet) 50 mg PO BID [facility] Last Admin: 12/16/20 08:43 Dose: 50 mg Documented by: Lab Results (last 24 hrs) 12/16/20 15:57: POC Glucose 213 H 12/16/20 11:05: POC Glucose 124 H 12/16/20 08:29: POC Glucose 98 12/16/20 08:01: POC Glucose 52 L 12/15/20 20:42: POC Glucose 157 H Microbiology Results 12/15/20 14:16 Stool Occult Blood - Final Assessment/ Plan: Nephrology Feeling better today. CELESTE is improving. Persistent LE edema. No acute events overnight. Vitals, medications, blood work and imaging reviewed in the chart. General: Oriented x3, Cooperative, Mild distress HEENT: Atraumatic Neck: Supple, JVD distended Respiratory: Diminished Cardiovascular: Regular rate/rhythm, Edema Gastrointestinal: Soft and benign, No guarding, Distended Musculoskeletal: No clubbing, No contractures Integumentary: No cyanosis, Skin lesion Neurological: Normal speech Laboratory Data (last 24 hrs) 12/14/20 05:21: Sodium 138, Potassium 3.6, BUN 60 H, Creatinine 1.63 H, Glucose 134 H, Phosphorus 3.5, Magnesium 1.7 L D, Total Bilirubin 0.5, AST 17, ALT 22, Alkaline Phosphatase 132 H 12/14/20 05:21: WBC 7.20, Hgb 8.1 L, Hct 24.8 L, Plt Count 380 Imagings Data: EXAM DESCRIPTION: RAD - Chest Single View - 12/13/2020 8:52 pm CLINICAL HISTORY: volume overload Chest pain. COMPARISON: Chest Pa And Lat (2 Views) dated 11/12/2020; Chest Single View dated 09/08/2019; Chest Pa And Lat (2 Views) dated 09/07/2019 FINDINGS: Portable technique limits examination quality. Mild pulmonary edema is seen. Moderate right pleural effusion. The heart is mildly enlarged in size with sternotomy wires present. IMPRESSION: Mild to moderate CHF versus volume overload pattern. EXAM DESCRIPTION: NM - Vent Perfusion VQ Scan - 12/14/2020 3:20 pm IMPRESSION: Normal to low probability V/Q scan for pulmonary embolism. Moderate-size left pleural effusion and atelectasis resulting in left base matching defects. Conclusions/Impression: CLARA likely due to CRS CKD III -No NSAIDs -Continue diuretic therapy -Give an extra dose of IV furosemide today Hypomagnesemia -Replete magnesium prn Diastolic CHF, A/C Anasarca -Continue furosemide and spironolactone -Continue Entresto -Continue CoQ10 DM I with CKD -Continue Lantus and RISS Moderate malnutrition -Maintain nutrition Anemia in chronic illness Iron deficiency 2.2% -Agree with IV iron Case reviewed with Dr. Francis
[2020-12-16] MEDS: ROPINIROLE HCL 1 MG TAB PO SCH (20:57)
[2020-12-17] MEDS: INSULIN -REGULAR HUMAN 50 UNIT/0.5 ML ML SQ SCH ×2 (08:41→12:16)
[2020-12-17] MEDS: SACUBITRIL/VALSARTAN 24/26 MG TAB PO SCH (08:42)
[2020-12-17] MEDS: FUROSEMIDE 40 MG/4 ML VIAL IV SCH (08:42)
[2020-12-17] MEDS: ENOXAPARIN 30 MG/0.3 ML SQ SCH (08:42)
[2020-12-17] MEDS: VITAMIN D 1000 UNIT TAB PO SCH (08:43)
[2020-12-17] MEDS: COENZYME Q10- 200 MG CAP PO SCH (08:43)
[2020-12-17] MEDS: OXYBUTYNIN CHLORIDE 5 MG TAB PO SCH (08:43)
[2020-12-17] MEDS: SPIRONOLACTONE 25 MG TABLET PO SCH (08:44)
[2020-12-17] MEDS: FLUOXETINE 20 MG CAP PO SCH (08:44)
[2020-12-17] MEDS: CETIRIZINE HCL 5 MG TABLET PO SCH (08:44)
[2020-12-17] MEDS: ATORVASTATIN 10 MG TAB PO SCH (08:45)
[2020-12-17] MEDS: CYANOCOBALAMIN 1,000 MCG TAB PO SCH (08:45)
[2020-12-17] MEDS: INSULIN GLARGINE 100 UNITS/ML SQ SCH (08:45)
[2020-12-17] MEDS: PANTOPRAZOLE 40MG TABLET PO SCH (08:45)
[2020-12-17] MEDS: MEDIHONEY 44 ML TOPICAL TUBE TOP SCH (09:00)
[2020-12-17 09:39] VITALS: O2SAT 96
[2020-12-17] MEDS: SOD FERRIC GLUC COMPLX/SUCROSE 125 MG in NA CHLORIDE 0.9% 100 ML IV SCH (10:00)
[2020-12-17] MEDS ORDERED: BENZONATATE 100 MG CAP PO PRN (11:46)
[2020-12-17 12:09] LABS: Hematocrit 25.9 % (36.0-45.0); MPV 8.2 fL (7.6-11.3); RBC Red Blood Cell Count 3.85 M/uL (3.86-4.86)
[2020-12-17 12:22] LABS: Potassium 4.5 mmol/L (3.5-5.1)
[2020-12-17 13:33] LABS: Anisocytosis 1+; Blood Morphology Comment NOTED (NOT SEEN); Hypochromasia 2+; Platelet Estimate INCR; Target Cells 1+
[2020-12-21 18:56] VITALS: BP 118/52; TEMP 97.6
--- NOTE | 2020-12-21 19:04 | P.PN ---
Date of Service: 12/16/20 Subjective Echocardiogram revealed diastolic dysfunction. VQ scan was negative. Continue with diuresing patient at this time Review of Systems 10-point ROS is otherwise unremarkable Physical Examination - Vital Signs Reviewed - Physical Exam General: Alert, In no apparent distress, Oriented x3 Respiratory: Clear to auscultation bilaterally, Normal air movement Cardiovascular: Regular rate/rhythm, Normal S1 S2, No murmurs Gastrointestinal: Normal bowel sounds, Soft and benign, Non-distended, No tenderness Musculoskeletal: Swelling, Erythema, Tenderness Integumentary: Venous stasis ulcer Neurological: No focal deficits Assessment & Plan - Problems (Diagnosis) (1) Venous insufficiency of both lower extremities Status: Acute (2) Venous ulcers of both lower extremities Status: Acute (3) CHF exacerbation Status: Acute Qualifiers: Heart failure type: diastolic Qualified Code(s): I50.33 - Acute on chronic diastolic (congestive) heart failure (4) CKD (chronic kidney disease) stage 4, GFR 15-29 ml/min Status: Chronic (5) History of coronary artery bypass graft x 3 Status: Chronic (6) PVD (peripheral vascular disease) Status: Chronic - Plan 1. Echocardiogram with acute diastolic dysfunction/VQ scan was negative 2. Continue wound care 3. Continue with gently diuresing patient 4. Cardiology consultation appreciated 5. Monitor protein intake 6. Strict I's and O's 7. Repeat CXR 8. Daily weights 9. Education regarding diet and treatment of congestive heart failure
--- NOTE | 2020-12-21 19:07 | P.DS ---
Discharge Date: 12/17/20 Primary Care Provider: Alfonzo Disposition: ROUTINE DISCHARGE Discharge Condition: GOOD Reason for Admission: CHF exacerbation Consultations: Master Deputy [employer] Security - Problems (1) Venous insufficiency of both lower extremities Status: Acute (2) Venous ulcers of both lower extremities Status: Acute (3) CHF exacerbation Status: Acute Qualifiers: Heart failure type: diastolic Qualified Code(s): I50.33 - Acute on chronic diastolic (congestive) heart failure (4) CKD (chronic kidney disease) stage 4, GFR 15-29 ml/min Status: Chronic (5) History of coronary artery bypass graft x 3 Status: Chronic (6) PVD (peripheral vascular disease) Status: Chronic Brief History of Present Illness: Ms. Irene is a 70 yo female with CHF, h/o CABG, DM, and PVD here today with worsening SOB for the past week. She says she has put on 40lbs of fluid last month. She went to her math teacher who increased her Lasix and spironolactone, but on her next visit, she had increased another 5lb. She initially felt better with the increased Lasix, but still had cough, wheezing, and CELESTE. She denies chest pain, night sweats, and chills. She says she has been admitted for CHF exacerbations 3x in the past year and improves with IV lasix. Her senior hr manager is Dr. Morales. H/H 8.0/24.8, BUN 60, Cr 1.71, GFR 29, BNP 8848. CXR shows mild to moderate CHF versus volume overload pattern. Hospital Course: Patient has done well during hospital stay. We were continuing to diurese the patient. Continue with outpatient Lasix as well. Close cardiology followup. Wound care will continue. Patient wound care follow up. Continue with Lasix at this time. At the time, patient is stable for discharge. Vital Signs/Physical Exam: Temp Pulse Resp BP Pulse Ox 97.6 F 83 18 118/52 L 99 12/21/20 19:00 12/21/20 19:00 12/21/20 19:00 12/21/20 19:00 12/21/20 19:00 General: Alert, In no apparent distress, Oriented x3 Laboratory Data at Discharge: WBC 7.50 K/uL (4.3-10.9) 12/17/20 11:46 Hgb 8.1 g/dL (12.0-15.0) L 12/17/20 11:46 Hct 25.9 % (36.0-45.0) L 12/17/20 11:46 Plt Count 411 K/uL (152-406) H 12/17/20 11:46 PT 15.0 SECONDS (9.5-12.5) H 12/13/20 21:00 INR 1.30 12/13/20 21:00 APTT 31.3 SECONDS (24.3-36.9) 12/13/20 21:00 Sodium 134 mmol/L (136-145) L 12/17/20 11:46 Potassium 4.5 mmol/L (3.5-5.1) 12/17/20 11:46 BUN 59 mg/dL (7-18) H 12/17/20 11:46 Creatinine 1.98 mg/dL (0.55-1.3) H 12/17/20 11:46 Glucose 358 mg/dL (74-106) H 12/17/20 11:46 Phosphorus 3.5 mg/dL (2.5-4.9) 12/14/20 05:21 Magnesium 1.7 mg/dL (1.8-2.4) L 12/15/20 05:34 Total Bilirubin 0.5 mg/dL (0.2-1.0) 12/14/20 05:21 AST 17 U/L (15-37) 12/14/20 05:21 ALT 22 U/L (12-78) 12/14/20 05:21 Alkaline Phosphatase 132 U/L (45-117) H 12/14/20 05:21 Troponin I < 0.02 ng/mL (0.0-0.045) 12/13/20 21:00 Home Medications: Cetirizine HCl [Zyrtec*] 10 mg PO DAILY 02/09/14 Fluoxetine HCl [Prozac*] 20 mg PO DAILY 02/09/14 Omeprazole Magnesium [Prilosec Otc] 20 mg PO DAILY 02/09/14 Ubidecarenone [Coenzyme Q10*] 100 mg PO DAILY 02/09/14 Pravastatin Sodium 1 tab PO DAILY 08/16/20 Ropinirole HCl 2 tab PO BEDTIME 08/16/20 Insulin Lispro [Humalog*] See Protocol SQ BEDTIME #1 vial 08/17/20 Cholecalciferol (Vitamin D3) [Vitamin D3] 1 cap PO DAILY 12/13/20 Cyanocobalamin (Vitamin B-12) [Vitamin B12] 1,000 mcg PO DAILY 12/13/20 Furosemide [Lasix*] 80 mg PO DAILY 12/13/20 Insulin Glargine,Hum.rec.anlog [Lantus Solostar] 22 units SQ DAILY 12/13/20 Oxybutynin Chloride 5 mg PO DAILY 12/13/20 Spironolactone 50 mg PO DAILY 12/13/20 Benzonatate [Tessalon Perle] 200 mg PO TID PRN #30 cap 12/17/20 Medihoney [Medihoney Woundcare Gel*] 1 appl TOP DAILY #1 tube 12/17/20 Metoprolol Tartrate [Lopressor] 25 mg PO BID #60 tab 12/17/20 New Medications: Metoprolol Tartrate [Lopressor] 25 mg PO BID #60 tab Medihoney [Medihoney Woundcare Gel*] 1 appl TOP DAILY #1 tube Benzonatate [Tessalon Perle] 200 mg PO TID PRN #30 cap PRN Reason: Cough Physician Discharge Instructions: -OK TO DC IV AND DC HOME -FOLLOW-UP WITH PCP IN 1-2 WEEKS -FOLLOW-UP WITH CARDIOLOGY And wound healing center IN 1-2 WEEKS -PLEASE MAKE SURE ALL DIAGNOSTIC STUDIES ARE AVAILABLE AND HAVE BEEN REVIEWED WITH PATIENT PRIOR TO DISCHARGE -RETURN TO THE ER IF Symptoms worsen -CALL DR. ROMAN AT [phone] IF ANY QUESTIONS REGARDING HOSPITAL STAY -PLEASE CALL THE FLOOR AT [phone] IF ANY MEDICATION OR NURSING QUESTIONS Diet: Low sodium Activity: Fall precautions Followup: Bethel Lechuga MD [ACTIVE - CAN ADMIT] - Jhon Sy MD [ACTIVE - CAN ADMIT] - Time spent managing pt's care (in minutes): 35
== END 2020-12-17 15:36 | disposition home or self-care (01) | DRG 292 ==
LOC: 2ND 20:12
PROVIDERS: ADMIT Hospitalist; ATTEND Hospitalist
DX: I50.33 Acute on chronic diastolic (congestive) heart failure (principal); N18.4 Chronic kidney disease, stage 4 (severe); N17.9 Acute kidney failure, unspecified; E44.0 Moderate protein-calorie malnutrition; L97.929 Non-pressure chronic ulcer of unspecified part of left lower leg with unspecified severity; L97.919 Non-pressure chronic ulcer of unspecified part of right lower leg with unspecified severity; E10.22 Type 1 diabetes mellitus with diabetic chronic kidney disease; E10.51 Type 1 diabetes mellitus with diabetic peripheral angiopathy without gangrene; E78.5 Hyperlipidemia, unspecified; I87.2 Venous insufficiency (chronic) (peripheral); E83.42 Hypomagnesemia; D64.9 Anemia, unspecified; I25.10 Atherosclerotic heart disease of native coronary artery without angina pectoris; Z90.710 Acquired absence of both cervix and uterus; Z68.27 Body mass index [BMI] 27.0-27.9, adult; Z88.5 Allergy status to narcotic agent; Z95.1 Presence of aortocoronary bypass graft; Z88.8 Allergy status to other drugs, medicaments and biological substances; Z79.4 Long term (current) use of insulin; Z79.899 Other long term (current) drug therapy; Z20.822 Contact with and (suspected) exposure to COVID-19
CPT/HCPCS: 36415; 71045; 78582; 80048; 80053; 81003; 82274; 82728; 82947; 83540; 83735; 83880; 84100; 84439; 84443; 84466; 84484; 85025; 85379; 85610; 85730; 93005; 93306; 94760; 99251; A9540; A9558; J1644; J1650; J1815; J1940; J2916; J3475; U0003